=== PATIENT | female | born 1965 | race Caucasian/White ===

== ENCOUNTER 2017-04-23 15:22 | Emergency (ER) | payer OTHER ==
[~2017-04-23] VITALS: Ht 160 cm; Wt 105.7 kg
[2017-04-23] MEDS ORDERED: HYDROCHLOROTHIA25 MG PO (15:46)
[2017-04-23] MEDS ORDERED: LISINOPRIL20 MG PO (15:46)
[2017-04-23] MEDS ORDERED: FLUOXETINE HCL40 MG PO (15:46)
[2017-04-23] MEDS ORDERED: TYLENOL325 MG PO (15:47)
[2017-04-23] MEDS ORDERED: CIPRO500 MG PO (18:20)
--- NOTE | 2017-04-25 08:02 | EKG ---
[facility] [address] [facility] [place] [address] Signed Normal sinus rhythm Prolonged QT Abnormal ECG No previous ECGs available Confirmed by TONE SOW MD ([id number]) on 04/25/2017 8:02:19 AM Electronically Signed By: TONE SOW MD 04/25/17 0802 PATIENT NAME: LILIAN BARRERA Electrocardiogram DATE OF : 65 PHYSICIAN: TONE SOW MD REPORT #: [id number] REPORT IS CONFIDENTIAL AND NOT TO BE RELEASED WITHOUT AUTHORIZATION
== END 2017-04-23 22:05 | disposition short-term general hospital (02) ==
LOC: ED 15:22
DX: R55 Syncope and collapse (principal); S09.90XA Unspecified injury of head, initial encounter; N39.0 Urinary tract infection, site not specified; Z87.891 Personal history of nicotine dependence; Z98.51 Tubal ligation status; Z90.49 Acquired absence of other specified parts of digestive tract; Z88.0 Allergy status to penicillin; Z79.899 Other long term (current) drug therapy; W16.211A Fall in (into) filled bathtub causing drowning and submersion, initial encounter
CPT/HCPCS: 70450; 71010; 80053; 81001; 84484; 85025; 87088; 93005; 93010; 96361; 96374; 99285; J2920; J7030

== ENCOUNTER 2018-10-10 15:39 | Emergency (ER) | payer OTHER ==
[~2018-10-10] VITALS: Ht 160 cm; Wt 105.7 kg
--- OUTSIDE RECORDS SUMMARY | ~2018-10-10 | XMS | Encounter Summary ---
Demographics + + + | Address | [address] | | | [place] [address] | + + + | Home Phone | | + + + | Preferred Language | Unknown | + + + | Marital Status | Unknown | + + + | Zoroastrianism Affiliation | Unknown | + + + | Race | Unknown | + + + | Ethnic Group | Unknown | + + + Author + + + | Author | [facility] [employer] | + + + | Organization | [facility] [employer] | + + + | Address | Unknown | + + + | Phone | Unavailable | + + + Support + + + + + | Name | Relationship | Address | Phone | + + + + + | Corazon Gardner | ECON | [address] | | | | | [place] | | | | | [address] | | + + + + + | Juni Morel | ECON | [address] | | | | | [place] | | | | | [address] | | + + + + + Care Team Providers + +------+ + | Care Modeling Director Name | Role | Phone | + +------+ + | Keeley Polanco PA-C | PCP | Unavailable | + +------+ + Reason for Visit +--------+ + | Reason | Comments | +--------+ + | Other | Approval for procedure | +--------+ + Encounter Details +--------+ + + + + | Date | Type | Department | Care Team | Description | +--------+ + + + + | 10/07/ | Telephone | [facility] | Salena Almaraz, | Other (Approval for | | 2018 | | Gastroenterology | [place] | procedure) | | | | [address], | | | | | | [address] [facility] | | | | | | [place] [address] | | | | | | [phone] | | | +--------+ + + + + Social History + +-------+ +--------+ + | Tobacco Use | Types | Packs/Day | Years | Date | | | | | Used | | + +-------+ +--------+ + | Former Smoker | | 0 | 1 | Quit: 04/29/1998 | + +-------+ +--------+ + + +---+---+---+ | Smokeless Tobacco: | | | | | Never Used | | | | + +---+---+---+ + + +---------+ + | Alcohol Use | Drinks/We | oz/Week | Comments | | | ek | | | + + +---------+ + | No | | | | + + +---------+ + + + + | Sex Assigned at | Date Recorded | | | | + + + | Not on file | | + + + as of this encounter Plan of Treatment +--------+---------+ + + + | Date | Type | Specialty | Care Team | Description | +--------+---------+ + + + | 11/27/ | Office | Gastroenterology | Dana Workman, | | | 2018 | Visit | | [address] | | | | | | [address] [facility], | | | | | | [place] [address] | | | | | | [phone] | | | | | | | | +--------+---------+ + + + as of this encounter Visit Diagnoses Not on filein this encounter"
--- OUTSIDE RECORDS SUMMARY | ~2018-10-10 | XMS | Encounter Summary ---
Demographics + + + | Address | [address] | | | [place] [address] | + + + | Home Phone | | + + + | Preferred Language | Unknown | + + + | Marital Status | Unknown | + + + | Roman Catholic Affiliation | Unknown | + + + | Race | Unknown | + + + | Ethnic Group | Unknown | + + + Author + + + | Author | [facility] [employer] | + + + | Organization | [facility] [employer] | + + + | Address | Unknown | + + + | Phone | Unavailable | + + + Support + + + + + | Name | Relationship | Address | Phone | + + + + + | Corazon Gardner | ECON | [address] | | | | | [place] | | | | | [address] | | + + + + + | Juni Morel | ECON | [address] | | | | | [place] | | | | | [address] | | + + + + + Care Team Providers + +------+ + | Care Channel Marketing Specialist Name | Role | Phone | + +------+ + | Keeley Polanco PA-C PCP | Unavailable | + +------+ + Reason for Visit +--------+ + | Reason | Comments | +--------+ + | Other | Pt requesting to be on cancellation list | +--------+ + Encounter Details +--------+ + + + + | Date | Type | Department | Care Team | Description | +--------+ + + + + | 10/02/ | Telephone | [facility] | Salena Almaraz, | Other (Pt requesting | | 2019 | | Gastroenterology | [place] | to be on | | | | [address], | | cancellation list) | | | | [facility] [address] [place], | | | | | | [place] [address] | | | | | | [phone] | | | +--------+ + + + + Social History + +-------+ +--------+ + | Tobacco Use | Types | Packs/Day | Years | Date | | | | | Used | | + +-------+ +--------+ + | Former Smoker | | | | Quit: 04/29/1998 | + +-------+ +--------+ [...] | | 2018 | Visit | | MD [address] | | | | | | [address] [facility], | | | | | | [place] [address] | | | | | | [phone] | | | | | | | | +--------+---------+ + + + as of this encounter Visit Diagnoses Not on filein this encounter"
--- OUTSIDE RECORDS SUMMARY | ~2018-10-10 | XMS | Encounter Summary ---
Demographics + + + | Address | [address] | | | [place] [address] | + + + | Home Phone | | + + + | Preferred Language | Unknown | + + + | Marital Status | Unknown | + + + | Mormon Affiliation | Unknown | + + + | Race | Unknown | + + + | Ethnic Group | Unknown | + + + Author + + + | Author | [facility] [employer] | + + + | Organization | [facility] [employer] | + + + | Address | Unknown | + + + | Phone | Unavailable | + + + Support + + + + + | Name | Relationship | Address | Phone | + + + + + | Corazon Gardner | ECON | [address] | | | | | [place] | | | | | [address] | | + + + + + | Juni Morel | ECON | [address] | | | | | [place] | | | | | [address] | | + + + + + Care Team Providers + +------+ + | Care Printing Plate Clerk Name | Role | Phone | + +------+ + | Keeley Polanco PA-C | PCP | Unavailable | + +------+ + Reason for Visit +--------+ + | Reason | Comments | +--------+ + | Other | Sooner procedure date | +--------+ + Encounter Details +--------+ + + + + | Date | Type | Department | Care Team | Description | +--------+ + + + + | 10/03/ | Telephone | [facility] | Salena Almaraz, | Other (Soon | | 2018 | | Gastroenterology | [place] | procedure date) | | | | [address], | | | | | | [address] [place], | | | | | | [place] [address] | | | | | | [phone] | | | +--------+ + + + [...] | | | | | | [address] Floor [place], | | | | | | [place] [address] | | | | | | [phone] | | | | | | | | +--------+---------+ + + + as of this encounter Visit Diagnoses Not on filein this encounter"
--- OUTSIDE RECORDS SUMMARY | ~2018-10-10 | XMS | Encounter Summary ---
Demographics + + + | Address | [address] | | | [place] [address] | + + + | Home Phone | | + + + | Preferred Language | Unknown | + + + | Marital Status | Unknown | + + + | Islam Affiliation | Unknown | + + + | Race | Unknown | + + + | Ethnic Group | Unknown | + + + Author + + + | Author | [facility] [employer] | + + + | Organization | [facility] [employer] | + + + | Address | Unknown | + + + | Phone | Unavailable | + + + Support + + + + + | Name | Relationship | Address | Phone | + + + + + | Corazon Gardenr | ECON | [address] | | | | | [place] | | | | | [address] | | + + + + + | Juni Morel | ECON | [address] | | | | | [place] | | | | | [address] | | + + + + + Care Team Providers + +------+ + | Care Farm Truck Driver Name | Role | Phone | + +------+ + | Keeley Polanco PA-C | PCP | Unavailable | + +------+ + Reason for Visit + + + | Reason | Comments | + + + | Abdominal Pain | | + + + | Diverticulosis | | + + + | Rectal Bleeding | | + + + | Nausea | | + + + | Emesis | | + + + Consult and Treat (Routine) +--------+--------+ + + + + | Status | Reason | Specialty | Diagnoses / | Referred By | Referred To | | | | | Procedures | Contact | Contact | +--------+--------+ + + + + | Closed | | Gastroenterol | Diagnoses | Cedric, | Ji, | | | | ogy | Lower | SHAYNA Laguna | MD Dana | | | | | abdominal | [address] | | | | | pain, | [address] | [address] | | | | | unspecified | [place], | [place], | | | | | | [place] [address] | [place] [address] | | | | | Diverticulos | Phone: | Phone: | | | | | is of large | [phone] | [phone] | | | | | intestine | Fax: | Fax: | | | | | without | [phone] | [phone] | | | | | perforation | | | | | | | or abscess | | | | | | | without | | | | | | | bleeding | | | | | | | Diarrhea, | | | | | | | unspecified | | | +--------+--------+ + + + + Encounter Details +--------+---------+ + + + | Date | Type | Department | Care Team | Description | +--------+---------+ + + + | 09/27/ | Office | [facility] | Dana Workman, | Diarrhea, | | 2019 | Visit | Gastroenterology | MD [address] | unspecified type | | | | [address], | [address] [place], | (Primary Dx); Blood | | | | [address] [place], | [place] [address] | in stool; Nausea; | | | | [place] [address] | [phone] | Weight loss; Loss of | | | | [phone] | | appetite | +--------+---------+ + + + Social History + +-------+ [...] + + + as of this encounter Last Filed Vital Signs + + + + | Vital Sign | Reading | Time Taken | + + + + | Blood Pressure | 120/87 | 09/27/2018 10:14 AM PDT | + + + + | Pulse | 108 | 09/27/2018 10:14 AM PDT | + + + + | Temperature | - | - | + + + + | Respiratory Rate | - | - | + + + + | Oxygen Saturation | - | - | + + + + | Inhaled Oxygen | - | - | | Concentration | | | + + + + | Weight | 102.8 kg (226 lb 9.6 | 09/27/2018 10:14 AM PDT | | | oz) | | + + + + | Height | 158.8 cm (5' 2.5") | 09/27/2018 10:14 AM PDT | + + + + | Body Mass Index | 40.79 | 09/27/2018 10:14 AM PDT | + + + + in this encounter Progress Notes Dana Workman MD - 09/27/2018 10:40 AM PDTFormatting of this note may be different from the original. GI CONSULT NOTE REFERRING PHYSICIAN: Luz Elena Steele PA REASON FOR CONSULT: Chief Complaint Patient presents with Abdominal Pain Diverticulosis Rectal Bleeding Nausea Emesis HPI 52 y.o. female presented for evaluation of abdominal pain, blood in stool, diarrhea, nausea and vomiting. Patient was in normal state of health till 4 months back. She started having abdominal pain located in the lower abdomen. CT scan done at that time showed diverticulosis without diverticulitis. She was empirically treated with antibiotics at the outside facilit y. Patient mentioned that she has been having diarrhea for past 4 months. She has 3-4 stools a day. Stools are bloody. She has been seeing blood mixed with stool. Since the onset of di arrhea she has lost 20 pounds unintentionally. Diarrhea is associated with nausea and occasi onal vomiting. It is also associated with diffuse abdominal cramping and pain. Additionally patient has lost appetite. Aside from antibiotic use in May she has not had any more an tibiotics. She denies any history of sick contacts or travel history. The symptoms have no s pecific association with any specific type of food. Every time she eats she has a bowel move ment right away. ROS Review of Systems Constitutional: Positive for appetite change. Negative for activity change, chills, diaphor esis, fatigue, fever and unexpected weight change. HENT: Negative for ear pain, mouth sores, nosebleeds, sore throat, trouble swallowing and v oice change. Eyes: Negative for pain, redness and visual disturbance. Respiratory: Positive for shortness of breath. Negative for cough, choking, chest tightness and wheezing. Cardiovascular: Negative for chest pain, palpitations and leg swelling. Gastrointestinal: Positive for abdominal pain, blood in stool, diarrhea, nausea and vomitin g. Negative for abdominal distention, anal bleeding, constipation and rectal pain. Endocrine: Negative for cold intolerance, heat intolerance and polydipsia. Genitourinary: Positive for hematuria. Negative for difficulty urinating, dysuria, frequenc y, urgency and vaginal bleeding. Musculoskeletal: Positive for back pain. Negative for arthralgias, gait problem, joint swel ling, myalgias, neck pain and neck stiffness. Skin: Negative for color change, rash and wound. Allergic/Immunologic: Negative for environmental allergies, food allergies and immunocompro mised state. Neurological: Positive for headaches. Negative for dizziness, tremors, seizures, syncope, w eakness and light-headedness. Hematological: Negative for adenopathy. Bruises/bleeds easily. Psychiatric/Behavioral: Negative for agitation, behavioral problems, confusion, dysphoric m ood, hallucinations and suicidal ideas. The patient is not nervous/anxious. Past Medical History Diagnosis Date Asthma Bipolar disorder (HCC) Bipolar disorder (HCC) Hydrocephalus with 911 OPERATOR shunt (2002) Migraine Past Surgical History Procedure Laterality Date CARPAL TUNNEL RELEASE Bilateral SECTION CHOLECYSTECTOMY CSF SHUNT 2002 HERNIA REPAIR TUBAL LIGATION SHx History Smoking Status Former Smoker Quit date: 04/29/1998 Smokeless Tobacco Never Used History Alcohol Use No History Drug Use No Comment: Pt denies, pos drug screen FHx Family History Problem Relation Age of Onset Cancer Mother Diabetes type II Mother Diabetes type II Father Allergies: Allergies Allergen Reactions Ketorolac Shortness of Breath Nsaids Shortness of Breath Penicillins Hives A-Cillin (penicillin) Type:Drug; Dt:04/19/2012; Tramadol Shortness of Breath Cephalexin Other (See Comments) Cephalexin Monohydrate(cephalexin) Note:Pt states she's allergic. Unknown reaction. ; Typ e:Drug; Unknown; Morphine Other (See Comments) Bad headache PHYSICAL EXAM: Vitals: 09/27/18 1014 BP: 120/87 Pulse: 108 Weight: 102.8 kg (226 lb 9.6 oz) Height: 1.588 m (5' 2.5") Physical Examination: General: NAD , WD/WN Eyes: EOMI, No lid lag or proptosis ENT: NC/AT , Moist mucous membranes. Neck : No thyromegaly , Supple , No LN palpable, CVS: S1+S2,No MRG, No JVD or pedal edema. Resp: CTA B/L, W/R/R -None Abd: Soft ,NT , ND , No organomegaly , BS present Neuro : AOX3, Skin: No conjuctival and palmar palor, Icterus-negative. MEDICATIONS Current Outpatient Prescriptions Medication Sig Dispense Refill doxycycline (VIBRA-TABS) 100 MG tablet Take 1 tablet by mouth 2 (two) times daily. 20 t ablet 0 fluticasone (FLOVENT HFA) 110 MCG/ACT inhaler Inhale 1 puff into the lungs 2 (two) time s daily. Rinse mouth after use lisinopril (ZESTRIL) 20 MG tablet Take 20 mg by mouth daily. SUMAtriptan (IMITREX) 50 MG tablet Take 50 mg by mouth as needed. vitamin D2, ergocalciferol, 25380 units capsule Take 1 capsule by mouth. divalproex (DEPAKOTE) 250 MG EC tablet Take 250 mg by mouth. FLUoxetine (PROZAC) 40 MG capsule Take 40 mg by mouth daily. Iron 25 MG TABS Take by mouth daily. metroNIDAZOLE (FLAGYL) 500 MG tablet Take 1 tablet by mouth 2 (two) times daily. (Patie nt not taking: Reported on 09/27/2018) 20 tablet 0 oxyCODONE-acetaminophen (PERCOCET) 5-325 MG per tablet Take 1-2 tablets by mouth every 4 (four) hours as needed for Pain. (Patient not taking: Reported on 09/27/2018) 20 tablet 0 traZODone (DESYREL) 100 MG tablet Take 100 mg by mouth. No current facility-administered medications for this visit. LABS AND DATA : Lab Results Component Value Date WBC 4.88 09/16/2018 HGB 14.8 09/16/2018 HCT 44.8 09/16/2018 PLT 144 (L) 09/16/2018 ALT 22 09/16/2018 AST 26 09/16/2018 NA 142 09/16/2018 K 4.7 09/16/2018 CL 108 09/16/2018 BUN 10 09/16/2018 CO2 25 09/16/2018 INR 1.0 04/28/2018 CT scan done on 05 May 2018 showed hepatic steatosis, surgically absent gallbladder, bi lateral nonobstructing nephrolithiasis, diverticulosis without diverticulitis, duodenal dive rticulum, para-toenail shunt with inflammatory changes in the anterior abdominal wall. ASSESSMENT/PLAN: ICD-10-CM 1. Diarrhea, unspecified type R19.7 C DIFF With Reflex to CLPCR Stool culture with shiga toxin Ova and parasite examination Case Request Operating Room: COLONOSCOPY W/ EGD polyethylene glycol (GOLYTELY,NULYTELY) 236 g suspension 2. Blood in stool K92.1 Case Request Operating Room: COLONOSCOPY W/ EGD polyethylene glycol (GOLYTELY,NULYTELY) 236 g suspension 3. Nausea R11.0 Case Request Operating Room: COLONOSCOPY W/ EGD polyethylene glycol (GOLYTELY,NULYTELY) 236 g suspension 4. Weight loss R63.4 5. Loss of appetite R63.0 - Pt with chronic diarrhea, with alarm signs of blood in stool and weight loss. Additionall y patient has nausea and vomiting. -D/D IBS-D , inflammatory bowel disease , microscopic colitis, medication induced, infectio us diarrhea , bile acid diarrhea ,celiac disease, small intestinal bacterial overgrowth etc . -Her symptoms are concerning specially presence of unintentional weight loss with blood in stool. It raise high index of suspicion for an inflammatory process going on this could be r elated to new onset inflammatory bowel disease or an ongoing infectious colitis. -This will need further endoscopic workup. -Will check stool studies to rule out infectious causes . -Will schedule for colonoscopy and upper endoscopy with biopsies for further workup of diar clive, blood in stool and weight loss. This will be scheduled with monitored anesthesia care as she has a BMI of more than 35, opioid use and previous history of having a peritoneal bhavin nt which is anticipated to make colonoscopy technically challenging.The procedure was discus sed in detail to include indications, limitations, alternatives available and potential comp lications to include but not limited to bleeding, infection, tear or perforation, missed les ions and potential reaction to medications. Patient and/or responsible adult voiced full und erstanding of these, opportunity for questions provided and informed consent was obtained. in this encounter Plan of Treatment +--------+---------+ + + + | Date | Type | Specialty | Care Team | Description | +--------+---------+ + + + | 11/27/ | Office | Gastroenterology | Dana Workman, | | | 2018 | Visit | | MD [address] | | | | | | [facility] [facility], | | | | | | [place] [address] | | | | | | [phone] | | | | | | | | +--------+---------+ + + + + +--------+ + + | Name | Priori | Associated Diagnoses | Order Schedule | | | ty | | | + +--------+ + + | C DIFF With Reflex to CLPCR | Routin | Diarrhea, | Expected: | | | e | unspecified type | 09/27/2018, Expires: | | | | | 09/28/2019 | + +--------+ + + | Stool culture with shiga toxin | Routin | Diarrhea, | Expected: | | | e | unspecified type | 09/27/2018, Expires: | | | | | 09/28/2019 | + +--------+ + + | Ova and parasite examination | Routin | Diarrhea, | Expected: | | | e | unspecified type | 09/27/2018, Expires: | | | | | 09/28/2019 | + +--------+ + + | Case Request Operating Room: | Routin | Diarrhea, | Expected: | | COLONOSCOPY W/ EGD | e | unspecified type | 10/22/2018, Expires: | | | | Blood in stool | 09/28/2019 | | | | Nausea | | + +--------+ + + as of this encounter Visit Diagnoses + + | Diagnosis | + + | Diarrhea, unspecified type - Primary | + + | Blood in stool | + + | Nausea | + + | Nausea alone | + + | Weight loss | + + | Loss of weight | + + | Loss of appetite | + + | Anorexia | + +
--- OUTSIDE RECORDS SUMMARY | ~2018-10-10 | XMS | Encounter Summary ---
Demographics + + + | Address | [address] | | | [place] [address] | + + + | Home Phone | | + + + | Preferred Language | Unknown | + + + | Marital Status | Unknown | + + + | Faith Affiliation | Unknown | + + + | Race | Unknown | + + + | Ethnic Group | Unknown | + + + Author + + + | Author | [facility] | + + + | Organization | [facility] | + + + | Address | Unknown | + + + | Phone | Unavailable | + + + Support + + + + + | Name | Relationship | Address | Phone | + + + + + | Corazon Gardner | ECON | [address] | | | | | [place] | | | | | [address] | | + + + + + | Juni Morel | ECON | [address] | | | | | [place] | | | | | [address] | | + + + + + Care Team Providers + +------+ + | Care Nurse Ldr Name | Role | Phone | + +------+ + | Keeley Polanco PA-C | PCP | Unavailable | + +------+ + Reason for Visit +--------+ + | Reason | Comments | +--------+ + | Other | REFERRAL FROM [facility] | +--------+ + Encounter Details +--------+ + + + + | Date | Type | Department | Care Team | Description | +--------+ + + + + | 09/05/ | Documentati | [facility] | Tiago Almonte | Other (REFERRAL FROM | | 2019 | on Only | Gastroenterology | MD Jaz[address] | [facility]) | | | | [address], | [address] | | | | | [facility] [address], | [place] [address] | | | | | [place] [address] | [phone] | | | | | [phone] | | | +--------+ + + + [...] | | | | | | [facility] [facility]– [place], | | | | | | [place] [address] | | | | | | [phone] | | | | | | | | +--------+---------+ + + + as of this encounter Visit Diagnoses Not on filein this encounter"
--- OUTSIDE RECORDS SUMMARY | ~2018-10-10 | XMS | Clinical Summary ---
Demographics + + + | Address | [address] | | | [place] [address] | + + + | Home Phone | | + + + | Preferred Language | Unknown | + + + | Marital Status | Unknown | + + + | Congregation Affiliation | Unknown | + + + | Race | Unknown | + + + | Ethnic Group | Unknown | + + + Author + + + | Author | [facility] [employer] | + + + | Organization | [facility] [facility] | + + + | Address | Unknown | + + + | Phone | Unavailable | + + + Support + + + + + | Name | Relationship | Address | Phone | + + + + + | Corazon Gardner | ECON | [address] | | | | | [place] | | | | | [address] | | + + + + + | Juni Morel | ECON | [address] | | | | | [place] | | | | | [address] | | + + + + + Care Team Providers + +------+ + | Care Mandolin Repairer Name | Role | Phone | + +------+ + | Keeley Polanco PA-C | PP | Unavailable | + +------+ + Allergies + + + + + + | Active Allergy | Reactions | Severity | Noted | Comments | | | | | Date | | + + + + + + | Cephalexin | Other (See Comments) | Medium | 07/13/19 | Cephalexin | | | | | 17 | Monohydrate(cephalex | | | | | | in) Note:Pt states | | | | | | she's allergic. | | | | | | Unknown reaction. ; | | | | | | Type:Drug; Unknown; | + + + + + + | Ketorolac | Shortness of Breath | High | 09/17/19 | | | | | | 19 | | + + + + + + | Morphine | Other (See Comments) | Medium | 04/15/20 | Bad headache | | | | | 12 | | + + + + + + | Nsaids | Shortness of Breath | High | 09/17/19 | | | | | | 19 | | + + + + + + | Penicillins | Hives | High | 04/15/20 | A-Cillin | | | | | 12 | (penicillin) | | | | | | Type:Drug; | | | | | | Dt:04/19/2012; | + + + + + + | Tramadol | Shortness of Breath | High | 09/17/19 | | | | | | 19 | | + + + + + + Current Medications + + + +---------+------+------+-------+ | Prescription | Sig. | Disp. | Refills | Star | End | Statu | | | | | | t | Date | s | | | | | | Date | | | + + + +---------+------+------+-------+ | SUMAtriptan | Take 50 mg by mouth | | | | | Activ | | (IMITREX) 50 MG | as needed. | | | | | e | | tablet | | | | | | | + + + +---------+------+------+-------+ | fluticasone | Inhale 1 puff into | | | | | Activ | | (FLOVENT HFA) 110 | the lungs 2 (two) | | | | | e | | MCG/ACT inhaler | times daily. Rinse | | | | | | | | mouth after use | | | | | | + + + +---------+------+------+-------+ | lisinopril | Take 20 mg by mouth | | | | | Activ | | (ZESTRIL) 20 MG | daily. | | | | | e | | tablet | | | | | | | + + + +---------+------+------+-------+ | divalproex | Take 250 mg by | | | | | Activ | | (DEPAKOTE) 250 MG EC | mouth. | | | | | e | | tablet | | | | | | | + + + +---------+------+------+-------+ | traZODone | Take 100 mg by | | | | | Activ | | (DESYREL) 100 MG | mouth. | | | | | e | | tablet | | | | | | | + + + +---------+------+------+-------+ | vitamin D2, | Take 1 capsule by | | | 06/08 | | Activ | | ergocalciferol, | mouth. | | | 03/28 | | e | | 90332 units capsule | | | | 17 | | | + + + +---------+------+------+-------+ | metoclopramide | Take 10 mg by mouth | | | | | Activ | | (REGLAN) 10 MG | 4 (four) times daily | | | | | e | | tablet | before meals and | | | | | | | | nightly. | | | | | | + + + +---------+------+------+-------+ | Iron 25 MG TABS | Take by mouth | | | | 03/2 | Disco | | | daily. | | | | 9/20 | ntinu | | | | | | | 19 | ed | + + + +---------+------+------+-------+ | FLUoxetine | Take 40 mg by mouth | | | | 03/2 | Disco | | (PROZAC) 40 MG | daily. | | | | 9/20 | ntinu | | capsule | | | | | 19 | ed | + + + +---------+------+------+-------+ | doxycycline | Take 1 tablet by | 20 | 0 | 10/2 | 03/2 | Disco | | (VIBRA-TABS) 100 MG | mouth 2 (two) times | tablet | | 1/20 | 9/20 | ntinu | | tablet | daily. | | | 18 | 19 | ed | + + + +---------+------+------+-------+ | metroNIDAZOLE | Take 1 tablet by | 20 | 0 | 10/2 | 03/2 | Disco | | (FLAGYL) 500 MG | mouth 2 (two) times | tablet | | 1/20 | 9/20 | ntinu | | tablet | daily. | | | 18 | 19 | ed | + + + +---------+------+------+-------+ | | Take 1-2 tablets by | 20 | 0 | 10/2 | 03/2 | Disco | | oxyCODONE-acetaminop | mouth every 4 (four) | tablet | | 1/20 | 9/20 | ntinu | | hen (PERCOCET) 5-325 | hours as needed for | | | 18 | 19 | ed | | MG per tablet | Pain. | | | | | | + + + +---------+------+------+-------+ | polyethylene | Take 4,000 mLs by | 4000 mL | 0 | 03/2 | 03/2 | Expir | | glycol | mouth once for 1 | | | 2/20 | 2/20 | ed | | (DINH HARTMAN) | dose. Use as | | | 19 | 19 | | | 236 g | instructed in | | | | | | | suspensionIndication | clinic. | | | | | | | s: Diarrhea, | | | | | | | | unspecified type, | | | | | | | | Blood in stool, | | | | | | | | Nausea | | | | | | | + + + +---------+------+------+-------+ Active Problems + + + | Problem | Noted Date | + + + | Diarrhea | 09/27/2018 | + + + + + | Overview: Added automatically from request for surgery [id number] | + + + + + | Blood in stool | 09/27/2018 | + + + + + | Overview: Added automatically from request for surgery [id number] | + + +--------+ + | Nausea | 09/27/2018 | +--------+ + + + | Overview: Added automatically from request for surgery [id number] | + + + + + | Essential hypertension | 04/29/2017 | + + + | Methamphetamine abuse (HCC) | 02/04/2014 | + + + | Rhabdomyolysis | 02/04/2014 | + + + | Leucocytosis | 02/04/2014 | + + + | Electrolyte disorder | 02/04/2014 | + + + | Elevated troponin | 02/04/2014 | + + + | Chronic headache disorder | 04/16/2012 | + + + | REAL ESTATE LEASING MANAGER (ventriculoperitoneal) shunt status | 04/16/2012 | + + + | Narcotic dependence (HCC) | 04/16/2012 | + + + Resolved Problems + + + + | Problem | Noted | Resolved | | | Date | Date | + + + + | Hypokalemia | 04/30/20 | | | | 17 | 7 | + + + + | Dehydration | 04/29/20 | | | | 17 | 7 | + + + + | THERESA (acute kidney injury) | 02/05/20 | | | | 14 | 7 | + + + + | Metabolic acidosis | 02/05/20 | | | | 14 | 7 | + + + + Encounters +--------+ + + + + | Date | Type | Specialty | Care Team | Description | +--------+ + + + + | 10/08/ | Hospital | | Dana Wokrman, | Diarrhea; Blood in | | 2019 | Encounter | | MD | stool; Nausea; | | | | | | Diarrhea, | | | | | | unspecified type; | | | | | | Blood in stool; | | | | | | Nausea | +--------+ + + + + | 10/08/ | Procedure | | | | | 2018 | Pass | | | | +--------+ + + + + | 10/08/ | Surgery | | Dana Workman, | COLONOSCOPY W/ EGD | | 2018 | | | MD | | +--------+ + + + + | 10/07/ | Anesthesia | | Alexis Beck | | 2018 | Event | | EVELIO Piedra | | +--------+ + + + + | 10/07/ | Telephone | | Salena Almaraz, | Other (Approval for | | 2018 | | | [place] | procedure) | +--------+ + + + + | 10/04/ | Hospital | | Dana Workman, | | | 2018 | Encounter | | MD | | +--------+ + + + + | 10/03/ | Orders Only | | Salena Almaraz, | Diarrhea, | | 2018 | | | [place] | unspecified type | | | | | | (Primary Dx); Blood | | | | | | in stool; Nausea; | | | | | | Weight loss; Loss of | | | | | | appetite | +--------+ + + + + | 10/03/ | Telephone | | Salena Almaraz, | Other (Sooner | | 2018 | | | [place] | procedure date) | +--------+ + + + + | 10/02/ | Telephone | | Salena Almaraz, | Other (Pt requesting | | 2018 | | | [place] | to be on | | | | | | cancellation list) | +--------+ + + + + | 09/27/ | Office | | Dana Workman, | Diarrhea, | | 2018 | Visit | | | unspecified type | | | | | | (Primary Dx); Blood | | | | | | in stool; Nausea; | | | | | | Weight loss; Loss of | | | | | | appetite | +--------+ + + + + | 09/16/ | Emergency | | Joe Sales DO | Bilateral flank pain | | 2018 | | | | (Primary Dx); | | | | | | Nephrolithiasis | +--------+ + + + + | 09/05/ | Documentati | | Tiago Almonte | Other (REFERRAL FROM | | 2018 | on Only | | MD Jazmin | KOFI MCPHERSON) | +--------+ + + + + from Last 3 Months Immunizations + + + + | Name | Dates Previously Given | Next Due | + + + + | INFLUENZA PF, | 07/13/2016 | | | QUADRIVALENT | | | | (PED/ADOL/ADULT) | | | + + + + | INFLUENZA W/PRESERV | 04/09/2018, 04/16/2017 | | | QUADRIVALENT | | | | (MULTIDOSE) | | | + + + + | Influenza, Trivalent | 03/22/2012, 05/04/2010, 04/14/2009, | | | W/Preservative | 09/03/2007, 07/21/2005, 07/12/2004 | | + + + + | OPV | 03/14/1977, 09/08/1975, 08/11/1975, | | | | 04/09/1973 | | + + + + | Pneumococcal | 02/05/2014 | | | Polysaccharide | | | | 23-valent | | | + + + + | Td W/o Preservative | 03/14/1977, 09/08/1975, 08/11/1975 | | | (Adol/adult) | | | + + + + | Tdap | 03/22/2012 | | + + + + Family History + + +------+ + | Medical History | Relation | Name | Comments | + + +------+ + | Diabetes type II | Father | | | + + +------+ + | Cancer | Mother | | | + + +------+ + | Diabetes type II | Mother | | | + + +------+ + | Malig hypertherm | Neg Hx | | | + + +------+ + + +------+ + + | Relation | Name | Status | Comments | + +------+ + + | Father | | | | + +------+ + + | Mother | | | | | | | (Age | | | | | 72) | | + +------+ + + Social History + +-------+ +--------+ [...] on file | | + + + Last Filed Vital Signs + + + + | Vital Sign | Reading | Time Taken | + + + + | Blood Pressure | 130/72 | 10/08/2018 12:20 PM PDT | + + + + | Pulse | 78 | 10/08/2018 12:20 PM PDT | + + + + | Temperature | 35.9 C (96.7 F) | 10/08/2018 12:20 PM PDT | + + + + | Respiratory Rate | 16 | 10/08/2018 12:20 PM PDT | + + + + | Oxygen Saturation | 98% | 10/08/2018 12:20 PM PDT | + + + + | Inhaled Oxygen | - | - | | Concentration | | | + + + + | Weight | 103.9 kg (229 lb 0.9 | 10/08/2018 10:29 AM PDT | | | oz) | | + + + + | Height | 158.8 cm (5' 2.5") | 10/08/2018 10:29 AM PDT | + + + + | Body Mass Index | 41.23 | 10/08/2018 10:29 AM PDT | + + + + Plan of Treatment +--------+---------+ + + + | Date | Type | Specialty | Care Team | Description | +--------+---------+ + + + | 11/27/ | Office | | Dana Workman, | | | 2018 | Visit | | MD [address] | | | | | | [address] Floor [place], | | | | | | [place] [address] | | | | | | [phone] | | | | | | | | +--------+---------+ + + + + + + + + | Health Maintenance | Due Date | Last Done | Comments | + + + + + | Cervical Cancer | | | | | Screening (Pap) | 6 | | | + + + + + | Breast Cancer | | | | | Screening | 6 | | | | (Mammogram) | | | | + + + + + | Vaccine: Zoster (1 | | | | | of 2) | 6 | | | + + + + + | Vaccine: | | 03/22/2012, 03/14/1977, | | | Dtap/Tdap/Td (5 - | 2 | 09/08/1975, Additional history | | | Td) | | exists | | + + + + + | Colon Cancer | | 10/08/2018 | | | Screening | 9 | | | | (Colonoscopy) | | | | + + + + + | Vaccine: Influenza | Completed | 04/09/2018, 04/16/2017, | | | | | 07/13/2016, Additional history | | | | | exists | | + + + + + Procedures + +--------+ + + + | Procedure Name | Priori | Date/Time | Associated Diagnosis | Comments | | | ty | | | | + +--------+ + + + | PATHOLOGY HISTOLOGY | Routin | 10/08/2018 | Diarrhea, | Results for this | | - TISSUE | e | 2:00 PM | unspecified type | procedure are in the | | | | PDT | Blood in stool | results section. | | | | | Nausea | | + +--------+ + + + | COLONOSCOPY | Routin | 10/08/2018 | | Results for this | | | e | 11:17 AM | | procedure are in the | | | | PDT | | results section. | + +--------+ + + + | EGD | Routin | 10/08/2018 | | Results for this | | | e | 11:04 AM | | procedure are in the | | | | PDT | | results section. | + +--------+ + + + | COLONOSCOPY W/ EGD | | 10/08/2018 | Diarrhea, | | | | | 10:52 AM | unspecified type | | | | | PDT | | | + +--------+ + + + +---+--------+ | | | | | Specia | | | l | | | Needs | | | 12:30 | | | | | | With | | | anesth | | | esiaAl | | | lergie | | | s: | | | PCN, | | | NSAIDS | | | , | | | ketoro | | | lac, | | | tramad | | | ol, | | | morphi | | | ne, | | | cephal | | | exinVP | | | shunt | | | in | | | place | +---+--------+ + +--------+ +---+ + | EKG STANDARD 12 LEAD | Timed | 10/04/2018 | | Results for this | | | | 12:56 PM | | procedure are in the | | | | PDT | | results section. | + +--------+ +---+ + | CBC W/AUTO DIFF | STAT | 09/16/2018 | | Results for this | | (REFLEX TO MANUAL) | | 5:56 PM | | procedure are in the | | | | PDT | | results section. | + +--------+ +---+ + | URINALYSIS (REFLEX | STAT | 09/16/2018 | | Results for this | | TO | | 5:39 PM | | procedure are in the | | MICROSCOPIC/REFLEX | | PDT | | results section. | | TO CULTURE) | | | | | + +--------+ +---+ + | LIPASE | STAT | 09/16/2018 | | Results for this | | | | 5:39 PM | | procedure are in the | | | | PDT | | results section. | + +--------+ +---+ + | C-REACTIVE PROTEIN | STAT | 09/16/2018 | | Results for this | | | | 5:39 PM | | procedure are in the | | | | PDT | | results section. | + +--------+ +---+ + | COMPREHENSIVE | STAT | 09/16/2018 | | Results for this | | METABOLIC PANEL | | 5:39 PM | | procedure are in the | | | | PDT | | results section. | + +--------+ +---+ + | CT URINARY TRACT | DAVID | 09/16/2018 | | Results for this | | ABDOMEN PELVIS WO | | 5:27 PM | | procedure are in the | | CONTRAST | | PDT | | results section. | + +--------+ +---+ + | ED INFORMATION | Routin | 09/16/2018 | | Results for this | | EXCHANGE | e | 4:01 PM | | procedure are in the | | | | PDT | | results section. | + +--------+ +---+ + from Last 3 Months Results Pathology histology - tissue (10/08/2018 2:00 PM) + + | Specimen | + + | Tissue | + + + + + | Narrative | Performed At | + + + | SPECIMEN(S): A DUODENAL BIOPSY SPECIMEN(S): B GASTRIC BIOPSY | [facility] | | SPECIMEN(S): C RANDOM RIGHT COLON BIOPSY SPECIMEN(S): D RANDOM LEFT | PATHOLOGY | | COLON BIOPSY SPECIMEN(S): E RECTAL POLYP I SPECIMEN(S): F RECTAL | | | POLYP II SPECIMEN SOURCE: A. DUODENAL BIOPSY B. GASTRIC BIOPSY C. | | | RANDOM RIGHT COLON BIOPSY D. RANDOM LEFT COLON BIOPSY E. RECTAL | | | POLYP I F. RECTAL POLYP II CLINICAL HISTORY: No preop or clinical | | | information is given on requisition. MICROSCOPIC DESCRIPTION: | | | Histologic sections of all submitted blocks are examined by light | | | microscopy. These findings, together with the gross examination, | | | support the pathologic diagnosis. FINAL PATHOLOGIC DIAGNOSIS: | | | A. 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 - Negative for active inflammation, ulceration | | | or significant villous blunting. B. Stomach, biopsies: | | | - Mild chronic gastritis with vascular congestion. - Negative | | | for active inflammation. - No Helicobacter pylori bacteria are | | | detected by HE stain. C. Random right colon, biopsies: | | | - Unremarkable colonic mucosa. - Negative for active colitis, | | | granulomas or dysplasia. D. Random left colon, biopsies: | | | - Unremarkable colonic mucosa. - Negative for active colitis, | | | granulomas or dysplasia. E. Rectal polyp #1, biopsy: | | | - Hyperplastic polyp. F. Rectal polyp #2, polypectomy: | | | - Tubular adenoma. - Negative for high-grade glandular | | | dysplasia or malignancy. AMB:emb:C2NR GROSS DESCRIPTION: Six | | | specimens are received in six containers, labeled "MS." A. The | | | specimen, labeled "MS, duodenal biopsy," is received in formalin and | | | consists of five pink-mireles soft tissue fragment(s) that measure from | | | 0.2-0.3 cm in greatest dimension. The specimen is entirely submitted | | | in cassette (A1). B. The specimen, labeled "MS, gastric | | | biopsy," is received in formalin and consists of three pink-mireles soft | | | tissue fragment(s) that measure from 0.2-0.4 cm in greatest dimension. | | | The specimen is entirely submitted in cassette (B1). C. The | | | specimen, labeled "MS, random right colon biopsy," is received in | | | formalin and consists of three pink-mireles soft tissue fragment(s) that | | | measure from 0.2-0.4 cm in greatest dimension. The specimen is | | | entirely submitted in cassette (C1). D. The specimen, labeled | | | "MS, random left colon biopsy," is received in formalin and consists | | | of two pink-mireles soft tissue fragment(s) that measure from 0.2-0.5 cm | | | in greatest dimension. The specimen is entirely submitted in cassette | | | (D1). E. The specimen, labeled "MS, rectal polyp one," is | | | received in formalin and consists of one [id number] soft tissue | | | fragment that measures up to 0.4 cm in greatest dimension. The | | | specimen is entirely submitted in cassette (E1). F. The | | | specimen, labeled "MS, rectal polyp two," is received in formalin and | | | consists of one pink-mireles soft tissue fragment that measures 1.4 cm in | | | greatest dimension. The specimen is serial sectioned and entirely | | | submitted in cassette (F1). JS (under the direct supervision of a | | | pathologist) The Gross Description was prepared using a voice | | | recognition system. The report was reviewed for accuracy; however, | | | sound-alike word errors, addition and/or deletions may occur. If | | | there is any question about this report, please contact Client | | | Services. PERFORMING LABORATORY: The technical component was | | | performed by [facility], [address] [place] [address] | | | (Ms Sql Server Developer: Earline Rhodes MD; CLIA# [id number]). Professional | | | interpretation was performed by [facility] | | | [address] [address] (Medical | | | Director: Joe Mustafa M.D.; CLIA#: [id number]). | | | Diagnostician: Earline Rhodes MD Pathologist Electronically Signed | | | 10/09/2018 | | + + + + +---------+ + + | Performing | Address | City/State/Zipcode | Phone Number | | Organization | | | | + +---------+ + + | [facility] | | | | + +---------+ + + Colonoscopy procedures (10/08/2018 11:17 AM) + + + | Narrative | Performed At | + + + | [facility] | [facility] | | | [facility] | | Patient Name: Qiana Carr Ann Procedure Date: | | | 10/08/2018 11:17 AM MRN: | | | [id number] Account | | | Number: [id number] Date of : | | | 1965 Note Status: Finalized Attending | | | MD: Dana Workman , Instrument Name: Elmaaner Colonoscope | | | | | | | | | Procedure Type: Colonoscopy | | | Indications: Hematochezia, Chronic diarrhea, Weight | | | loss Medicines: Monitored Anesthesia Care | | | Complications: No immediate complications. | | | | | | Procedure: Pre-Anesthesia Assessment: - | | | Prior to the procedure, a History and Physical was performed, and | | | patient medications and allergies were reviewed. The | | | patient's tolerance of previous anesthesia was also | | | reviewed. The risks and benefits of the procedure and the | | | sedation options and risks were discussed with the patient. | | | All questions were answered, and informed consent was obtained. | | | Prior Anticoagulants: The patient has taken no previous | | | anticoagulant or antiplatelet agents. ASA Grade Assessment: | | | III - A patient with severe systemic disease. After | | | reviewing the risks and benefits, the patient was deemed in | | | satisfactory condition to undergo the procedure. After I | | | obtained informed consent, the scope was passed under direct | | | vision. Throughout the procedure, the patient's blood | | | pressure, pulse, and oxygen saturations were monitored | | | continuously. The Colonoscope was introduced through the | | | anus and advanced to the cecum, identified by appendiceal | | | orifice and ileocecal valve. The colonoscopy was performed | | | without difficulty. The patient tolerated the procedure well. The | | | quality of the bowel preparation was excellent. The ileocecal | | | valve, appendiceal orifice, and rectum were photographed. | | | | | | | | | | | | Estimated Blood Loss: Estimated blood loss: none. | | | Scope Withdrawal Time 0 hours 32 minutes 20 seconds Findings: | | | The perianal and digital rectal examinations were normal. | | | A 15 mm polyp was found in the rectum 1-2 above dentate line. | | | The polyp was pedunculated. The polyp was removed with a | | | hot snare. Resection and retrieval were complete. It was | | | very vascular and starts bleeding after polypectomy , four | | | hemostatic clips were successfully placed. Bleeding had | | | stopped at the end of the procedure. Area was successfully injected | | | with 4 mL of a 1:10,000 solution of epinephrine for | | | hemostasis. A 4 mm polyp was found in the rectum. The polyp | | | was sessile. The polyp was removed with a cold snare. | | | Resection and retrieval were complete. The recto-sigmoid | | | colon, sigmoid colon, descending colon, splenic flexure, | | | transverse colon, hepatic flexure, ascending colon, cecum, | | | appendiceal orifice and ileocecal valve appeared normal. Biopsies for | | | histology were taken with a cold forceps from the right | | | colon and left colon for evaluation of microscopic colitis. | | | | | | | | | | | | Impression: - One 15 mm polyp in the | | | rectum, removed with a hot snare. Resected and retrieved. | | | Clips were placed. Injected. - One 4 mm polyp in the rectum, | | | removed with a cold snare. Resected and retrieved. | | | - The recto-sigmoid colon, sigmoid colon, descending colon, | | | splenic flexure, transverse colon, hepatic flexure, | | | ascending colon, cecum, appendiceal orifice and ileocecal | | | valve are normal. Biopsied. | | | | | | | | | Recommendation: - Patient has a contact | | | number available for emergencies. The signs and symptoms of | | | potential delayed complications were discussed with the | | | patient. Return to normal activities tomorrow. Written discharge | | | instructions were provided to the patient. - Resume | | | previous diet. - Continue present medications. - | | | Repeat colonoscopy in 3 years for surveillance. - Await | | | pathology results. | | | | | | | | | Dana Workman, 10/08/2018 | | | 12:06:35 PM This report has been signed electronically. Note | | | Initiated On: 10/08/2018 11:17 AM Number of Addenda: 0 | | | [facility] | | + + + + +---------+ + + | Performing | Address | City/State/Zipcode | Phone Number | | Organization | | | | + +---------+ + + | [facility] | | | | + +---------+ + + EGD (10/08/2018 11:04 AM) + + + | Narrative | Performed At | + + + | [facility] | [facility] | | | [facility] | | Patient Name: Qiana Carr Procedure Date: | | | 10/08/2018 11:04 AM MRN: | | | [id number] Account | | | Number: [id number] Date of : | | | 1965 Note Status: Finalized Attending | | | MD: Dana Workman , Instrument Name: [id number] Gastroscope | | | | | | Procedure Type: Upper GI endoscopy | | | Indications: Anorexia, Diarrhea, Nausea, Weight | | | loss Medicines: Monitored Anesthesia Care | | | Complications: No immediate complications. | | | | | | Procedure: Pre-Anesthesia Assessment: - | | | Prior to the procedure, a History and Physical was performed, and | | | patient medications and allergies were reviewed. The | | | patient's tolerance of previous anesthesia was also | | | reviewed. The risks and benefits of the procedure and the | | | sedation options and risks were discussed with the patient. | | | All questions were answered, and informed consent was obtained. | | | Prior Anticoagulants: The patient has taken no previous | | | anticoagulant or antiplatelet agents. ASA Grade Assessment: | | | III - A patient with severe systemic disease. After | | | reviewing the risks and benefits, the patient was deemed in | | | satisfactory condition to undergo the procedure. After | | | obtaining informed consent, the endoscope was passed under direct | | | vision. Throughout the procedure, the patient's blood | | | pressure, pulse, and oxygen saturations were monitored | | | continuously. The Endoscope was introduced through the | | | mouth, and advanced to the third part of duodenum. The | | | upper GI endoscopy was accomplished without difficulty. The | | | patient tolerated the procedure well. | | | | | | | | | Estimated Blood Loss: Estimated blood loss: none. | | | Findings: The examined esophagus was normal. The | | | entire examined stomach was normal. Biopsies were taken with a cold | | | forceps for histology. The examined duodenum was | | | normal. Biopsies were taken with a cold forceps for | | | histology. | | | | | | | | | Impression: - Normal esophagus. | | | - Normal stomach. Biopsied. - Normal examined duodenum. | | | Biopsied. | | | | | | | | | Recommendation: - Patient has a contact | | | number available for emergencies. The signs and symptoms of | | | potential delayed complications were discussed with the | | | patient. Return to normal activities tomorrow. Written discharge | | | instructions were provided to the patient. - Resume | | | previous diet. - Continue present medications. - | | | Await pathology results. | | | | | | | | | Dana Workman, 10/08/2018 | | | 11:58:42 AM This report has been signed electronically. Note | | | Initiated On: 10/08/2018 11:04 AM Number of Addenda: 0 | | | [facility] | | + + + + +---------+ + + | Performing | Address | City/State/Zipcode | Phone Number | | Organization | | | | + +---------+ + + | [facility] | | | | + +---------+ + + EKG STANDARD 12 LEAD (10/04/2018 12:56 PM) + + + + + | Component | Value | Ref Range | Performed At | + + + + + | Ventricular Rate | 81 | BPM | [facility] | + + + + + | Atrial Rate | 81 | BPM | [facility] | + + + + + | P-R Interval | 168 | ms | [facility] | + + + + + | QRS Duration | 76 | ms | [facility] | + + + + + | Q-T Interval | 380 | ms | [facility] | + + + + + | QTC Calculation | 441 | ms | [facility] | | (Bezet) | | | | + + + + + | Calculated P [place] | 15 | degrees | [facility] | + + + + + | Calculated R [place] | -8 | degrees | [facility] | + + + + + | Calculated T [place] | 15 | degrees | [facility] | + + + + + | Diagnosis | Normal sinus | | [facility] | | | rhythmNonspecific ST | | | | | and/or T wave | | | | | abnormalitiesWhen | | | | | compared with ECG of | | | | | 04-FEB-2014 | | | | | 01:25,Questionable | | | | | change in QRS axisT wave | | | | | inversion now evident | | | | | in Inferior leadsQT has | | | | | shortenedConfirmed by | | | | | NELI SPEARS ([id number]) on | | | | | 10/04/2018 2:27:14 PM | | | + + + + + + + + + + | Performing | Address | City/State/Zipcode | Phone Number | | Organization | | | | + + + + + | [facility] | [address] | [place] [address] | | + + + + + CBC W/Auto Diff (Reflex to Manual) (09/16/2018 5:56 PM) + + + + + | Component | Value | Ref Range | Performed At | + + + + + | WBC | 4.88 | 3.80 - 11.00 K/uL | [facility] | + + + + + | RBC | 4.68 | 3.70 - 5.10 M/uL | [facility] | + + + + + | HGB | 14.8 | 11.3 - 15.5 g/dL | [facility] | + + + + + | HCT | 44.8 | 34.0 - 46.0 % | [facility] | + + + + + | MCV | 95.8 | 80.0 - 100.0 fl | [facility] | + + + + + | MCH | 31.6 | 27.0 - 34.0 pg | [facility] | + + + + + | MCHC | 32.9 | 32.0 - 35.5 g/dL | [facility] | + + + + + | RDW SD | 45.9 | 37 - 53 fl | [facility] | + + + + + | PLT | 144 (L) | 150 - 400 K/uL | [facility] | + + + + + | MPV | 9.3 | fl | [facility] | + + + + + | DIFF TYPE | AUTOMATED | | [facility] | + + + + + | NEUTROPHILS | 39.84 | % | [facility] | + + + + + | LYMPHOCYTES | 45.42 | % | [facility] | + + + + + | MONOCYTES | 11.43 | % | [facility] | + + + + + | EOSINOPHILS | 2.33 | % | [facility] | + + + + + | BASOPHILS | 0.98 | % | [facility] | + + + + + | NEUTROPHILS ABS | 1.94 | 1.90 - 7.40 K/uL | [facility] | + + + + + | LYMPHOCYTES ABS | 2.21 | 1.00 - 3.90 K/uL | [facility] | + + + + + | MONOCYTES ABS | 0.56 | 0.00 - 0.80 K/uL | [facility] | + + + + + | EOSINOPHILS ABS | 0.11 | 0.00 - 0.50 K/uL | [facility] | + + + + + | BASOPHILS ABS | 0.05Comment: Testing | 0.00 - 0.10 K/uL | [facility] | | | performed at [facility] – [place];[address] | | | | | [address];[place] | | | | | [id number] | | | + + + + + + + + + + | Performing | Address | City/State/Zipcode | Phone Number | | Organization | | | | + + + + + | [facility] | [address] | [place] [address] | | + + + + + Urinalysis (reflex to microscopic/reflex to culture) (09/16/2018 5:39 PM) + + + + + | Component | Value | Ref Range | Performed At | + + + + + | COLOR UA | YELLOW | | [facility] | + + + + + | CLARITY | CLEAR | | [facility] | + + + + + | Specific [place], UA | 1.016 | 1.002 - 1.030 | [facility] | + + + + + | LEUKOCYTE ESTERASE | NEGATIVE | NEGATIVE | [facility] | + + + + + | NITRITE | NEGATIVE | NEGATIVE | [facility] | + + + + + | UROBILINOGEN | NORMAL | <1.1 mg/dL | [facility] | + + + + + | PROTEIN | NEGATIVE | NEGATIVE mg/dL | [facility] | + + + + + | PH,URINE | 7.0 | 5.0 - 8.0 | [facility] | + + + + + | BLOOD | NEGATIVE | NEGATIVE | [facility] | + + + + + | KETONES | NEGATIVE | NEGATIVE mg/dL | [facility] | + + + + + | BILIRUBIN | NEGATIVE | NEGATIVE | [facility] | + + + + + | GLUCOSE | NEGATIVEComment: Testing | NEGATIVE mg/dL | [facility] | | | performed at [facility] – [place];[facility] | | | | | [address];[place], [place] | | | | | [address] | | | + + + + + + + | Specimen | + + | Urine, Clean Catch | + + + + + + + | Performing | Address | City/State/Zipcode | Phone Number | | Organization | | | | + + + + + | [facility] | [address] | [place] [address] | | + + + + + C-Reactive Protein (09/16/2018 5:39 PM) + + + + + | Component | Value | Ref Range | Performed At | + + + + + | CRP | <0.4Comment: Testing | <0.5 mg/dL | [facility] | | | performed at [facility] – [place], [place];[address] | | | | | [address];[place] | | | | | [address] | | | + + + + + + + | Specimen | + + | Blood | + + + + + + + | Performing | Address | City/State/Zipcode | Phone Number | | Organization | | | | + + + + + | [facility] | [address] | [place] [address] | | + + + + + Lipase (09/16/2018 5:39 PM) + + + + + | Component | Value | Ref Range | Performed At | + + + + + | LIPASE | 51Comment: Testing | 12 - 53 U/L | [facility] | | | performed at [facility] – [place], [place];[address] | | | [address];[place] | | | | | [address] | | | + + + + + + + | Specimen | + + | Blood | + + + + + + + | Performing | Address | City/State/Zipcode | Phone Number | | Organization | | | | + + + + + | [facility] | [address] | [facility] [place] [address] | | + + + + + Complete Metabolic Panel (09/16/2018 5:39 PM) + + + + + | Component | Value | Ref Range | Performed At | + + + + + | SODIUM | 142 | 135 - 145 mmol/L | [facility] | + + + + + | POTASSIUM | 4.7 | 3.5 - 4.9 mmol/L | [facility] | + + + + + | CHLORIDE | 108 | 99 - 109 mmol/L | [facility] | + + + + + | CO2 | 25 | 23 - 32 mmol/L | [facility] | + + + + + | ANION GAP AGAP | 14 | 5 - 20 mmol/L | [facility] | + + + + + | GLUCOSE | 88 | 65 - 99 mg/dL | [facility] | + + + + + | BUN | 10 | 8 - 25 mg/dL | [facility] | + + + + + | CREATININE | 0.55 | 0.50 - 1.00 mg/dL | [facility] | + + + + + | BUN/CREAT | 18 | | [facility] | + + + + + | CALCIUM | 9.0 | 8.5 - 10.5 mg/dL | [facility] | + + + + + | TOTAL PROTEIN | 7.2 | 6.3 - 8.2 g/dL | [facility] | + + + + + | Albumin | 4.3 | 3.6 - 5.0 g/dL | [facility] | + + + + + | GLOBULIN | 2.9 | 1.3 - 4.9 g/dL | [facility] | + + + + + | A/G | 1.5 | 1.0 - 2.4 | [facility] | + + + + + | TBIL | 0.6 | 0.1 - 1.5 mg/dL | [facility] | + + + + + | ALK PHOS | 110 | 35 - 115 U/L | [facility] | + + + + + | AST | 26 | 10 - 45 U/L | [facility] | + + + + + | ALT | 22 | 10 - 65 U/L | [facility] | + + + + + | EGFR | >60Comment: GFR <60: | >60 mL/min/1.73m2 | [facility] | | | CHRONIC KIDNEY DISEASE, | | | | | IF FOUND OVER A 3 MONTH | | | | | PERIOD.GFR <15: KIDNEY | | | | | FAILURE.FOR | | | | | AMERICANS, MULTIPLY THE | | | | | CALCULATED GFR BY | | | | | 1.210.This eGFR is | | | | | calculated using the | | | | | MDRD IDHI traceable | | | | | equation.Testing | | | | | performed at [facility] – [place], [place];[address] | | | | | [address];[place] | | | | | [address] | | | + + + + + + + | Specimen | + + | Blood | + + + + + + + | Performing | Address | City/State/Zipcode | Phone Number | | Organization | | | | + + + + + | [facility] | [address] | [place] [address] | | + + + + + CT Renal Stone Study (09/16/2018 5:27 PM) + + + | Impressions | Performed At | + + + | 1. Bilateral nephrolithiasis, without evidence of hydronephrosis, | [facility] | | no evidence of renal obstruction or inflammatory change | [facility] | | 2. Marked inflammatory scarring about the midline incision at the | | | hernia repair site, near and just superior to the umbilicus. | | | Potentially associated with ongoing symptoms, although similar in | | | appearance to imaging from April 10. Although there is no | | | evidence of elevated portal venous pressures, the liver is somewhat | | | lobular even nodular in appearance. Signed by: Adi Garcia Sign | | | Date/Time: 09/16/2018 5:40 PM | | + + + + + + | Narrative | Performed At | + + + | CT ABDOMEN AND PELVIS WITHOUT CONTRAST (CPT) CT [facility] | [facility] | | INFORMATION: Abdominal pain right side. COMPARISON: CT ABDOMEN | [facility] | | PELVIS W CONTRAST (04/28/2018); CT ABDOMEN PELVIS WO CONTRAST | | | (04/28/2017); SHUNT SERIES (09/21/2008); PROCEDURE: Axial images | | | through the abdomen and pelvis. Multiplanar reconstructions. At | | | least one of the following CT dose optimization techniques were used: | | | Automated exposure control; Adjustment of mA and/or kV according to | | | patient size; Use of iterative reconstruction technique. FINDINGS: | | | KIDNEYS, URETERS and BLADDER: Multiple small nonobstructive stones in | | | the pelves of both kidneys. A total of 3 small stones in the right | | | kidney. On the left, 2 stones on the left, the largest measuring | | | 4-5 mm on image 101 series 3. Calcification in the left hemipelvis on | | | image 253 series 3 is adnexal, and stable from imaging from many | | | months ago Incidental notation made of a peritoneal | | | catheter. Midline scarring and clips in the gallbladder | | | fossa. The midline ventral scarring is irregular, could be a | | | source of ongoing symptoms to the right of midline, but stable to the | | | prior examination without herniated bowel LUNG BASES: Scarring in | | | the lingula, medial inferior lung bases, but without effusion, | | | infiltrate or discrete lesion. No consolidation ABDOMEN Liver and | | | Biliary: Stable to noncontrast technique without intrinsic attic | | | lesion to noncontrast imaging but the margin liver is at least | | | lobular and somewhat nodular in appearance. There is no | | | ascites. No biliary ductal dilatation. Spleen: Normal in | | | size. No intrinsic lesion to noncontrast technique. Adrenal | | | glands: Normal. Pancreas: Normal to technique. ABDOMEN AND PELVIS | | | Bowel: Favor duodenal diverticulum on image 58. Bowel is not | | | obstructed. Appendix not distinguished from other loops of bowel | | | but there is no secondary sign of appendicitis. No abscess, distal | | | diverticulosis without active diverticulitis. No abnormal pelvic | | | fluid or high-grade inflammatory changes to the adjacent fat | | | Vessels: Abdominal aorta normal in caliber. No aneurysm. Veins | | | not assessed without contrast. Lymph Nodes: No adenopathy. | | | Peritoneum and Retroperitoneum: No ascites or free air. No significant | | | retroperitoneal abnormality. PELVIS Genitourinary: No pelvic mass | | | and no significant urethral abnormality. BODY WALL Soft Tissues: No | | | bowel or inflamed fat containing hernia, mass or hemorrhage. Bones: | | | Marked degenerative changes in a dextroconvex rotatory scoliosis of | | | the thoracic lumbar transition. Facet arthropathy. Posterior | | | disc osteophyte disease-multilevel | | + + + + + | Procedure Note | + + | Celestino, Rad Results In - 09/16/2018 5:[address] ABDOMEN AND PELVIS WITHOUT CONTRAST | | (CPT)CT [facility] INFORMATION:Abdominal pain right side.COMPARISON:CT ABDOMEN PELVIS W | | CONTRAST (04/28/2018); CT ABDOMEN PELVIS WOCONTRAST (04/28/2017); SHUNT SERIES | | (09/21/2008);PROCEDURE:Axial images through the abdomen and pelvis. | | Multiplanarreconstructions.At least one of the following CT dose optimization techniques | | wereused: Automated exposure control; Adjustment of mA and/or kV accordingto patient | | size; Use of iterative reconstruction technique.FINDINGS:KIDNEYS, URETERS and BLADDER: | | Multiple small nonobstructive stones inthe pelves of both kidneys.A total of 3 small | | stones in the right kidney. On the left, 2 stoneson the left, the largest measuring 4-5 | | mm on image 101 series 3.Calcification in the left hemipelvis on image 253 series 3 is | | adnexal,and stable from imaging from many months agoIncidental notation made of a | | peritoneal catheter. Midline scarringand clips in the gallbladder fossa. The midline | | ventral scarring isirregular, could be a source of ongoing symptoms to the right | | ofmidline, but stable to the prior examination without herniated bowelLUNG BASES: | | Scarring in the lingula, medial inferior lung bases, butwithout effusion, infiltrate or | | discrete lesion. No consolidationABDOMENLiver and Biliary: Stable to noncontrast | | technique without intrinsicattic lesion to noncontrast imaging but the margin liver is | | at leastlobular and somewhat nodular in appearance.There is no ascites. No biliary | | ductal dilatation.Spleen: Normal in size. No intrinsic lesion to noncontrast | | technique.Adrenal glands: Normal.Pancreas: Normal to technique.ABDOMEN AND PELVISBowel: | | Favor duodenal diverticulum on image 58. Bowel is notobstructed. Appendix not | | distinguished from other loops of bowel butthere is no secondary sign of appendicitis. | | No abscess, distaldiverticulosis without active diverticulitis. No abnormal pelvic | | fluidor high-grade inflammatory changes to the adjacent fatVessels: Abdominal aorta | | normal in caliber. No aneurysm. Veins notassessed without contrast.Lymph Nodes: No | | adenopathy.Peritoneum and Retroperitoneum: No ascites or free air. No | | significantretroperitoneal abnormality.PELVISGenitourinary: No pelvic mass and no | | significant urethral abnormality.BODY WALLSoft Tissues: No bowel or inflamed fat | | containing hernia, mass orhemorrhage.Bones: Marked degenerative changes in a | | dextroconvex rotatory scoliosisof the thoracic lumbar transition. Facet arthropathy. | | Posterior discosteophyte disease-multilevelIMPRESSION:1. Bilateral nephrolithiasis, | | without evidence of hydronephrosis, noevidence of renal obstruction or inflammatory | | change2. Marked inflammatory scarring about the midline incision at thehernia repair | | site, near and just superior to the umbilicus.Potentially associated with ongoing | | symptoms, although similar inappearance to imaging from . Although there is no | | evidence of elevated portal venous pressures,the liver is somewhat lobular even nodular | | in appearance.Signed by: Joel Garcia Date/Time: 09/16/2018 5:40 PM | |there is no secondary sign of appendicitis. No abscess, distal | |diverticulosis without active diverticulitis. No abnormal pelvic fluid | |or high-grade inflammatory changes to the adjacent fat | |Vessels: Abdominal aorta normal in caliber. No aneurysm. Veins not | |assessed without contrast. | |Lymph Nodes: No adenopathy. | |Peritoneum and Retroperitoneum: No ascites or free air. No significant | |retroperitoneal abnormality. | |PELVIS | |Genitourinary: No pelvic mass and no significant urethral abnormality. | |BODY WALL | |Soft Tissues: No bowel or inflamed fat containing hernia, mass or | |hemorrhage. | |Bones: Marked degenerative changes in a dextroconvex rotatory scoliosis | |of the thoracic lumbar transition. Facet arthropathy. Posterior disc | |osteophyte disease-multilevel | |IMPRESSION: | |1. Bilateral nephrolithiasis, without evidence of hydronephrosis, no | |evidence of renal obstruction or inflammatory change | |2. Marked inflammatory scarring about the midline incision at the | |hernia repair site, near and just superior to the umbilicus. | |Potentially associated with ongoing symptoms, although similar in | |appearance to imaging from April | |3. Although there is no evidence of elevated portal venous pressures, | |the liver is somewhat lobular even nodular in appearance. | |Signed by: Adi Garcia | |Sign Date/Time: 09/16/2018 5:40 PM | + + + + + + + | Performing | Address | City/State/Zipcode | Phone Number | | Organization | | | | + + + + + | [facility] | [address] | [place] [address] | | + + + + + ED INFORMATION EXCHANGE (09/16/2018 4:01 PM) + + + | Narrative | Performed At | + + + | [id number] [id number] Criteria Met Care | ED | | Guidelines 10 in Security and Safety No recent Security | INFORMATION | | Events currently on file ED Care Guidelines from [employer] - | EXCHANGE | | [place] Last Updated: 12/26/17 11:09 AM Additional | | | Information: [facility].Has been discharged | | | from services after several no shows and no returned callreschedule | | | appointments. These are guidelines and the provider should exercise | | | clinical judgment when providing care. Prescription Drug | | | Report (12 Mo.) PDMP query found no report. E.D. Visit Count | | | (12 mo.) Facility Visits Low Acuity [facility] 10 0 | | | [facility] 2 0 Total 12 0 Note: Visits | | | indicate total known visits. Medicaid Low Acuity Dx are the number of | | | primary diagnoses on the Medicaid's Low Acuity dx list. Recent | | | Emergency Department Visit Summary Showing 10 most recent visits out | | | of 12 in the past 12 months Date Facility City State Type Diagnoses | | | or Chief Complaint Sep 16, [address] [facility] | | | Emergency Flank Pain Sep 12, 2018 [facility] | | | 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 Emergency r kidney, | | | lower back pain Unspecified abdominal pain Other | | | specified diseases of biliary tract Sep 08, 2018 [facility] | | | [facility] [place] Emergency abd pain diarrhea Diarrhea, | | | unspecified Sep 02, 2018 [facility] [place] | | | Emergency Headache,Diarrhea Unspecified abdominal pain | | | Functional diarrhea Jun 25, 2018 [facility] | | | [place] Emergency ABDOMINAL PAIN Unspecified | | | abdominal pain Other microscopic hematuria Cystitis, | | | unspecified without hematuria May 05, 2018 [facility] | | | [place] Emergency Chief Complaint: ABD PAIN Apr 28, 2018 | | | [facility]. [place] Emergency Abdominal Pain | | | Back Pain Acute parametritis and pelvic cellulitis | | | Apr 01, 2018 [facility] 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 Emergency Chief | | | Complaint: ABD PAIN Recent Inpatient Visit Summary No | | | recorded inpatient visits. Care Providers Provider PRC Type | | | Phone Fax Service Dates Virginia Gaspar CHW Community Health Worker | | | Sep 11, 2018 - Current KEELEY POLANCO | | | Primary Care Current [employer] Mental Health Provider | | | Current Slade Gaspar - | | | MARCUS Thomas Case or Library Attendant | | | Current [place] This patient has registered at the | | | [facility] Emergency Department For more | | | information visit: | | | [email or web address] | | | [email or web address] The above information is provided for the sole purpose of | | | patient treatment. Use of this information beyond the terms of Data | | | Sharing Memorandum of Understanding and License Agreement is | | | prohibited. In certain cases not all visits may be represented. | | | Consult the aforementioned facilities for additional information. | | | 2019 [employer] - [place], [place] - | | | | | + + + + + | Procedure Note | + + | Interface, Lab - 09/16/2018 4:02 PM PDT Formatting of this note may be different | | from the original.[id number] Met Care Guidelines 10 in | | 12Security and SafetyNo recent Security Events currently on fileED Care Guidelines from | | Etecebibi Acevedo Updated: 12/26/17 11:09 AM Additional Information:Last seen by | | Ruba on 09/28/2017.Has been discharged from services after several no shows and no | | returned callreschedule appointments.These are guidelines and the provider should | | exercise clinical judgment when providing care.Prescription Drug Report (12 Mo.)PDMP | | query found no report.E.D. Visit Count (12 mo.)Facility Visits Low Acuity [facility] | | [facility] 10 0 [facility] 2 0 Total 12 0 Note: Visits indicate total | | known visits. Medicaid Low Acuity Dx are the number of primary diagnoses on the | | Medicaid's Low Acuity dx list. Recent Emergency Department Visit SummaryShowing 10 most | | recent visits out of 12 in the past 12 monthsDate Facility City State Type Diagnoses or | | Chief Complaint Sep 16, 2018 [facility] [place]. [place] Emergency Flank Pain | | Sep 12, 2018 [facility] [place] Emergency KIDNEY STONES Spondylosis | | without myelopathy or radiculopathy, lumbar region Right lower quadrant pain | | Spondylosis without myelopathy or radiculopathy, thoracic region Ventral hernia | | without obstruction or gangrene Sep 10, 2018 [facility] [place] Emergency | | r kidney, lower back pain Unspecified abdominal pain Other specified diseases of | | biliary tract Sep 08, 2018 [facility] [place] Emergency abd pain diarrhea | | Diarrhea, unspecified Sep 02, 2018 [facility] [place] Emergency | | Headache,Diarrhea Unspecified abdominal pain Functional diarrhea Jun 25, 2018 | | [facility] [place] Emergency ABDOMINAL PAIN Unspecified abdominal pain | | Other microscopic hematuria Cystitis, unspecified without hematuria May 05, 2018 | | [facility] [place] Emergency Chief Complaint: ABD PAIN Apr 28, 2018 | | [facility]. [place] Emergency Abdominal Pain Back Pain Acute | | parametritis and pelvic cellulitis Apr 01, 2018 [facility] [place] | | Emergency Personal history of nicotine dependence Unspecified abdominal pain | | Other intervertebral disc degeneration, thoracic region Other intervertebral disc | | degeneration, lumbar region Mar 19, 2018 [facility] [place] Emergency | | Chief Complaint: ABD PAIN Recent Inpatient Visit SummaryNo recorded inpatient visits. | | Care ProvidersProvider PRC Type Phone Fax Service Virginia Fisher, MARCUS Community | | Health Worker Sep 11, 2018 - Current KEELEY POLANCO Primary Care | | Current [employer] Mental Health Provider Current | | MARCUS Santana Case or Library Attendant | | [facility] at [facility] | | [place] [facility] For more information visit: | | [email or web address] The above | | information is provided for the sole purpose of patient treatment. Use of this | | information beyond the terms of Data Sharing Memorandum of Understanding and License | | Agreement is prohibited. In certain cases not all visits may be represented. Consult the | | aforementioned facilities for additional information. 2019 [employer] | | [employer] - [place], [place] - [email or web address] | | Ventral hernia without obstruction or gangrene | | | |Sep 10, 2018 [facility] [place] [facility] | | r kidney, lower back pain | | Unspecified abdominal pain | | Other specified diseases of biliary tract | | | |Sep 08, 2018 [facility] [place] [facility] | | abd pain diarrhea | | Diarrhea, unspecified | | | |Sep 02, 2018 [facility] [place] [facility] | | Headache,Diarrhea | | Unspecified abdominal pain | | Functional diarrhea | | | |Jun 25, 2018 [facility] [place] Emergency | | ABDOMINAL PAIN | | Unspecified abdominal pain | | Other microscopic hematuria | | Cystitis, unspecified without hematuria | | | |May 05, 2018 [facility] [place] Emergency Chief Complaint: ABD PAIN | |Apr 28, 2018 [facility] [place] Emergency | | Abdominal Pain | | Back Pain | | Acute parametritis and pelvic cellulitis | | | |Apr 01, 2018 [facility] [place] Emergency | | Personal history of nicotine dependence | | Unspecified abdominal pain | | Other intervertebral disc degeneration, thoracic region | | Other intervertebral disc degeneration, lumbar region | | | |Mar 19, 2018 [facility] [place] Emergency Chief Complaint: ABD PAIN | | | | | |Recent Inpatient Visit Summary | |No recorded inpatient visits. | | | |Care Providers | |Provider PRC Type Phone Fax Service Dates | |Virginia Gaspar CHW Community Health Worker Sep 11, 2018 - Current | |KEELEY POLANCO Primary Care Current | |[employer] Mental Health Provider Current | |MARCUS Santana Case or Library Attendant Current | | | |[employer] Portal | |This patient has registered at the [facility] Emergency Department | |For more information visit: [email or web address] | |The above information is provided for the sole purpose of patient treatment. Use of this in formation beyond the terms of Data Sharing Memorandum of Understanding and License Agreement is prohibited. In | |certain cases not all visits may be represented. Consult the aforementioned facilities for additional information. | |2019 [employer] 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
--- OUTSIDE RECORDS SUMMARY | ~2018-10-10 | XMS | Encounter Summary ---
Demographics + + + | Address | [address] | | | [place] [address] | + + + | Home Phone | | + + + | Preferred Language | Unknown | + + + | Marital Status | Unknown | + + + | Sikhism Affiliation | Unknown | + + + | Race | Unknown | + + + | Ethnic Group | Unknown | + + + Author + + + | Author | [facility] | + + + | Organization | [facility] | + + + | Address | Unknown | + + + | Phone | Unavailable | + + + Support + + + + + | Name | Relationship | Address | Phone | + + + + + | Corazon Gardner | ECON | [address] | | | | | [place] | | | | | [address] | | + + + + + | Juni Morel | ECON | [address] | | | | | [place] | | | | | [address] | | + + + + + Care Team Providers + +------+ + | Care Chief Port Director Name | Role | Phone | [...] + + | 09/05/ | Documentati | [facility] | Tiago Almonte | Other (REFERRAL FROM | | 2019 | on Only | Gastroenterology | MD Jaz[address] | KOFI MCPHERSON) | | | | [address], | [address] | | | | | [facility] [address] [place], | [place] [address] | | | | | [place] [address] | [phone] | | | | | [phone] | | | +--------+ + + + [...] | | | | | | [address] [facility], | | | | | | [place] [address] | | | | | | [phone] | | | | | | | | +--------+---------+ + + + as of this encounter Visit Diagnoses Not on filein this encounter"
--- OUTSIDE RECORDS SUMMARY | ~2018-10-10 | XMS | Encounter Summary ---
Demographics + + + | Address | [address] | | | [place] [address] | + + + | Home Phone | | + + + | Preferred Language | Unknown | + + + | Marital Status | Unknown | + + + | Pentecostal Affiliation | Unknown | + + + | Race | Unknown | + + + | Ethnic Group | Unknown | + + + Author + + + | Author | [facility] | + + + | Organization | [facility] | + + + | Address | Unknown | + + + | Phone | Unavailable | + + + Support + + + + + | Name | Relationship | Address | Phone | + + + + + | Corazon Gardner | ECON | [address] | | | | | [place] | | | | | [address] | | + + + + + | Juni Morel | ECON | [address] | | | | | [place] | | | | | [address] | | + + + + + Care Team Providers + +------+ + | Care Nuclear Technologist Name | Role | Phone | + +------+ + | Keeley Polanco PA-C | PCP | Unavailable | + +------+ + Encounter Details +--------+ + + + + | Date | Type | Department | Care Team | Description | +--------+ + + + + | 10/03/ | Orders Only | [facility] | Salena Almaraz, | Diarrhea, | | 2019 | | Gastroenterology | [place] | unspecified type | | | | [address], | | (Primary Dx); Blood | | | | [address] [place], | | in stool; Nausea; | | | | [place] [address] | | Weight loss; Loss of | | | | [phone] | | appetite | +--------+ + + + + Social [...] Gastroenterology | Dana Workman, | | | 2019 | Visit | | MD [address] | | | | | | [address] [facility], | | | | | | [place] [address] | | | | | | [phone] | | | | | | | [...] | + + | Anorexia | + +"
--- OUTSIDE RECORDS SUMMARY | ~2018-10-10 | XMS | Clinical Summary ---
Demographics + + + | Address | [address] | | | [place] [address] | + + + | Home Phone | | + + + | Preferred Language | Unknown | + + + | Marital Status | | + + + | Orthodox Affiliation | Unknown | + + + | Race | Unknown | + + + | Ethnic Group | Unknown | + + + Author + + + | Author | [facility] | | | and [place] | + + + | Organization | [facility] | | | and [place] | + + + | Address | Unknown | + + + | Phone | Unavailable | + + + Support + + + + + | Name | Relationship | Address | Phone | + + + + + | Corazon Gardner | ECON | [address] | | | | | [place], [place] | | | | | [address] | | + + + + + | AdrielJuni | ECON | [address] | | | | | [place], [place] | | | | | [address] | | + + + + + Care Team Providers + +------+ + | Care Rooter Operator Name | Role | Phone | + +------+ + PP | Unavailable | + +------+ + Allergies Not on File Current Medications Not on file Active Problems Not on file Social History + +-------+ +--------+------+ | Tobacco Use | Types | Packs/Day | Years | Date | | | | | Used | | + +-------+ +--------+------+ | Never Assessed | | | | | + +-------+ +--------+------+ + + + | Sex Assigned at | Date Recorded | | | | + + + | Not on file | | + + + Plan of Treatment + + + + + | Health Maintenance | Due Date | Last Done | Comments | + + + + + | Vaccine: | | | | | Dtap/Tdap/Td (1 - | 5 | | | | Tdap) | | | | + + + + + | Cervical Cancer | | | | | Screening (Pap) | 6 | | | + + + + + | Vaccine: Zoster (1 | | | | | of 2) | 6 | | | + + + + + | Vaccine: Influenza | | | | | (#1) | 8 | | | + + + + + Results Not on filefrom Last 3 Months"
--- OUTSIDE RECORDS SUMMARY | ~2018-10-10 | XMS | Encounter Summary ---
Demographics + + + | Address | [address] | | | [place] [address] | + + + | Home Phone | | + + + | Preferred Language | Unknown | + + + | Marital Status | Unknown | + + + | Confucianism Affiliation | Unknown | + + + | Race | Unknown | + + + | Ethnic Group | Unknown | + + + Author + + + | Author | [facility] | + + + | Organization | [email or web address] | + + + | Address | Unknown | + + + | Phone | Unavailable | + + + Support + + + + + | Name | Relationship | Address | Phone | + + + + + | Corazon Gardner | ECON | [address] | | | | | [place] | | | | | [address] | | + + + + + | Juni Morel | ECON | [address] | | | | | [place] | | | | | [address] | | + + + + + Care Team Providers + +------+ + | Care Director Selection And Administration Name | Role | Phone | + +------+ + | Keeley Polanco PA-C | PCP | Unavailable | + +------+ + Reason for Visit + + + | Reason | Comments | + + + | Flank Pain | bilateral. Hx of kidney stones. | + + + Encounter Details +--------+ + + + + | Date | Type | Department | Care Team | Description | +--------+ + + + + | 09/16/ | Emergency | [facility] | Joe Sales DO | Bilateral flank pain | | 2019 | | [facility] | Emergency | (Primary Dx); | | | | Emergency Department | Department [address] | Nephrolithiasis | | | | [address] | [facility] [address] | | | | | [place] [address] | [place] [address] | | | | | [phone] | [phone] | | | | | | | | +--------+ + + [...] + + + | Blood Pressure | 112/74 | 09/16/2018 6:37 PM PDT | + + + + | Pulse | 85 | 09/16/2018 4:01 PM PDT | + + + + | Temperature | 37.2 C (99 F) | 09/16/2018 6:37 PM PDT | + + + + | Respiratory Rate | 18 | 09/16/2018 6:37 PM PDT | + + + + | Oxygen Saturation | 98% | 09/16/2018 6:37 PM PDT | + + + + | Inhaled Oxygen | - | - | | Concentration | | | + + + + | Weight | 105.1 kg (231 lb | 09/16/2018 4:01 PM PDT | | | 11.3 oz) | | + + + + | Height | - | - | + + + + | Body Mass Index | 41.7 | 09/16/2018 4:01 PM PDT | + + + + in this encounter Discharge Instructions The following attachments cannot be sent through Care Everywhere.Flank Pain, Uncertain Caus e (Mauritanian)in this encounter Medications at Time of Discharge + + +--------+---------+ + + | Medication | Sig. | Disp. | Refills | Start | End Date | | | | | | Date | | + + +--------+---------+ + + | fluticasone | Inhale 1 puff into | | | | | | (FLOVENT HFA) 110 | the lungs 2 (two) | | | | | | MCG/ACT inhaler | times daily. Rinse | | | | | | | mouth after use | | | | | + + +--------+---------+ + + | lisinopril | Take 20 mg by mouth | | | | | | (ZESTRIL) 20 MG | daily. | | | | | | tablet | | | | | | + + +--------+---------+ + + | SUMAtriptan | Take 50 mg by mouth | | | | | | (IMITREX) 50 MG | as needed. | | | | | | tablet | | | | | | + + +--------+---------+ + + | vitamin D2, | Take 1 capsule by | | | 06/26/20 | | | ergocalciferol, | mouth. | | | 17 | | | [address]407 units capsule | | | | | | + + +--------+---------+ + + | doxycycline | Take 1 tablet by | 20 | 0 | 04/28/20 | | | (VIBRA-TABS) 100 MG | mouth 2 (two) times | tablet | | 18 | 9 | | tablet | daily. | | | | | + + +--------+---------+ + + | FLUoxetine | Take 40 mg by mouth | | | | | | (PROZAC) 40 MG | daily. | | | | 9 | | capsule | | | | | | + + +--------+---------+ + + | Iron 25 MG TABS | Take by mouth | | | | | | | daily. | | | | 9 | + + +--------+---------+ + + | metroNIDAZOLE | Take 1 tablet by | 20 | 0 | 04/28/20 | | | (FLAGYL) 500 MG | mouth 2 (two) times | tablet | | 18 | 9 | | tablet | daily. | | | | | + + +--------+---------+ + + | | Take 1-2 tablets by | 20 | 0 | 04/28/20 | | | oxyCODONE-acetaminop | mouth every 4 (four) | tablet | | 18 | 9 | | hen (PERCOCET) 5-325 | hours as needed for | | | | | | MG per tablet | Pain. | | | | | + + +--------+---------+ + + as of this encounter Plan of Treatment +--------+---------+ + + + | Date | Type | Specialty | Care Team | Description | +--------+---------+ + + + | 11/27/ | Office | Gastroenterology | Dana Workman, | | | 2018 | Visit | | [address] | | | | | | [address] [facility], | | | | | | [place] [address] | | | | | | [phone] | | | | | | | | +--------+---------+ + + + as of this encounter Procedures + +--------+ + + + | Procedure Name | Priori | Date/Time | Associated Diagnosis | Comments | | | ty | | | | + +--------+ + + + | CBC W/AUTO DIFF | STAT | 09/16/2018 | | Results for this | | (REFLEX TO MANUAL) | | 5:56 PM | | procedure are in the | | | | PDT | | results section. | + +--------+ + + + | URINALYSIS (REFLEX | STAT | 09/16/2018 | | Results for this | | TO | | 5:39 PM | | procedure are in the | | MICROSCOPIC/REFLEX | | PDT | | results section. | | TO CULTURE) | | | | | + +--------+ + + + | C-REACTIVE PROTEIN | STAT | 09/16/2018 | | Results for this | | | | 5:39 PM | | procedure are in the | | | | PDT | | results section. | + +--------+ + + + | LIPASE | STAT | 09/16/2018 | | Results for this | | | | 5:39 PM | | procedure are in the | | | | PDT | | results section. | + +--------+ + + + | COMPREHENSIVE | STAT | 09/16/2018 | | Results for this | | METABOLIC PANEL | | 5:39 PM | | procedure are in the | | | | PDT | | results section. | + +--------+ + + + | CT URINARY TRACT | DAVID | 09/16/2018 | | Results for this | | ABDOMEN PELVIS WO | | 5:27 PM | | procedure are in the | | CONTRAST | | PDT | | results section. | + +--------+ + + + | ED INFORMATION | Routin | 09/16/2018 | | Results for this | | EXCHANGE | e | 4:01 PM | | procedure are in the | | | | PDT | | results section. | + +--------+ + + + in this encounter Results CBC W/Auto Diff (Reflex to Manual) (09/16/2018 5:56 PM) + + + + + | Component | Value | Ref Range | Performed At | + + + + + | WBC | 4.88 | 3.80 - 11.00 K/uL | [facility] | + + + + + | RBC | 4.68 | 3.70 - 5.10 M/uL | [facility] | + + + + + | HGB | 14.8 | 11.3 - 15.5 g/dL | [facility] | + + + + + | HCT | 44.8 | 34.0 - 46.0 % | [facility] | + + + + + | MCV | 95.8 | 80.0 - 100.0 fl | [facility] | + + + + + | MCH | 31.6 | 27.0 - 34.0 pg | [facility] | + + + + + | MCHC | 32.9 | 32.0 - 35.5 g/dL | [facility] | + + + + + | RDW SD | 45.9 | 37 - 53 fl | [facility] | + + + + + | PLT | 144 (L) | 150 - 400 K/uL | [facility] | + + + + + | MPV | 9.3 | fl | [facility] | + + + [...] 1.94 | 1.90 - 7.40 K/uL | [facility] | + + + + + | LYMPHOCYTES ABS | 2.21 | 1.00 - 3.90 K/uL | [facility] | + + + + + | MONOCYTES ABS | 0.56 | 0.00 - 0.80 K/uL | [facility] | + + + + + | EOSINOPHILS ABS | 0.11 | 0.00 - 0.50 K/uL | [facility] | + + + + + | BASOPHILS ABS | 0.05Comment: Testing | 0.00 - 0.10 K/uL | [facility] | | | performed at [facility];[address] | | | | | [address];[place] | | | | | [address] | | | + + + + + + + + + + | Performing | Address | City/State/Zipcode | Phone Number | | Organization | | | | + + + + + | [facility] | [address] | [place] [address] | | + + + + + Urinalysis (reflex to microscopic/reflex to culture) (09/16/2018 5:39 PM) + + + + + | Component | Value | Ref Range | Performed At | + + + + + | COLOR UA | YELLOW | | [employer] [employer] | + + + + + | CLARITY | CLEAR | | [facility] | + + + + + | Specific [place], UA | 1.016 | 1.002 - 1.030 | [facility] | + + + + + [...] KETONES | NEGATIVE | NEGATIVE mg/dL | [facility] | + + + + + | BILIRUBIN | NEGATIVE | NEGATIVE | [facility] | + + + + + | GLUCOSE | NEGATIVEComment: Testing | NEGATIVE mg/dL | [facility] | | | performed at [facility];[address] | | | | | [address];[place] | | | | | [address] | | | + + + + + + + | Specimen | + + | Urine, Clean Catch | + + + + + + + | Performing | Address | City/State/Zipcode | Phone Number | | Organization | | | | + + + + + | [facility] | [address] | [place] [address] | | + + + + + Lipase (09/16/2018 5:39 PM) + + + + + | Component | Value | Ref Range | Performed At | + + + + + | LIPASE | 51Comment: Testing | 12 - 53 U/L | [facility] | | | performed at [facility];[address] | | [address];[place], [place] | | | | | [address] | | | + + + + + + + | Specimen | + + | Blood | + + + + + + + | Performing | Address | City/State/Zipcode | Phone Number | | Organization | | | | + + + + + | [facility] | [address] | [place] [address] | | + + + + + C-Reactive Protein (09/16/2018 5:39 PM) + + + + + | Component | Value | Ref Range | Performed At | + + + + + | CRP | <0.4Comment: Testing | <0.5 mg/dL | [facility] | | | performed at [facility];[address] | | | | | [address];[place] | | | | | [address] | | | + + + + + + + | Specimen | + + | Blood | + + + + + + + | Performing | Address | City/State/Zipcode | Phone Number | | Organization | | | | + + + + + | [facility] | [address] | [place] [address] | | + + + + + Complete Metabolic Panel (09/16/2018 5:39 PM) + + + + + | Component | Value | Ref Range | Performed At | + + + + + | SODIUM | 142 | 135 - 145 mmol/L | [facility] | + + + + + | POTASSIUM | 4.7 | 3.5 - 4.9 mmol/L | [facility] | + + + + + | CHLORIDE | 108 | 99 - 109 mmol/L | [facility] | + + + + + | CO2 | 25 | 23 - 32 mmol/L | [facility] | + + + + + | ANION GAP AGAP | 14 | 5 - 20 mmol/L | [facility] | + + + + + | GLUCOSE | 88 | 65 - 99 mg/dL | [facility] | + + + + + | BUN | 10 | 8 - 25 mg/dL | [facility] | + + + + + | CREATININE | 0.55 | 0.50 - 1.00 mg/dL | [facility] | + + + + + | BUN/CREAT | 18 | | [facility] | + + + + + | CALCIUM | 9.0 | 8.5 - 10.5 mg/dL | [facility] | + + + + + | TOTAL PROTEIN | 7.2 | 6.3 - 8.2 g/dL | [facility] | + + + + + [...] 0.6 | 0.1 - 1.5 mg/dL | [facility] | + + + + + | ALK PHOS | 110 | 35 - 115 U/L | [facility] | + + + + + | AST | 26 | 10 - 45 U/L | [facility] | + + + + + | ALT | 22 | 10 - 65 U/L | [facility] | + + + + + | EGFR | >60Comment: GFR <60: | >60 mL/min/1.73m2 | [facility] | | | CHRONIC KIDNEY DISEASE, [...] the | | | | | [facility] traceable | | | | | equation.Testing | | | | | performed at [facility] | | | | | [facility];[place], [place] | | | | | [address] | | | + + + + + + + | Specimen | + + | Blood | + + + + + + + | Performing | Address | City/State/Zipcode | Phone Number | | Organization | | | | + + + + + | [facility] | [address] | [place] [address] | | + + + + + [...] nodular in appearance. Signed by: Adi Garcia | | | Date/Time: 09/16/2018 5:40 PM [...] | + + + + + | [facility] | [address] | [place] [address] | | + + + + + ED INFORMATION EXCHANGE (09/16/2018 4:01 PM) + + + | Narrative | Performed At | + + + | [id number] Criteria Met Care | ED | | Guidelines in Security and Safety No recent Security | INFORMATION | | Events currently on file ED Care Guidelines from [employer] - | EXCHANGE | | [place] Last Updated: 12/26/17 11:09 AM Additional | | | Information: Last seen by [facility] on 09/28/2017.Has been discharged | | | from services after several no shows and no returned callreschedule | | | appointments. These are guidelines and the provider should exercise | | | clinical judgment when providing care. Prescription Drug | | | Report (12 Mo.) PDMP query found no report. E.D. Visit Count | | | (12 mo.) Facility Visits [facility] 10 0 | | | [facility] 2 0 Total 12 0 Note: Visits [...] | or Chief Complaint Sep 16, 2018 [facility]. [place] | | | Emergency Flank Pain Sep 12, 2018 [email or web address] | | | 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 Emergency r kidney, | | | lower back pain Unspecified abdominal pain Other | | | specified diseases of biliary tract Sep 08, 2018 [facility] | | [facility] [place] Emergency abd pain diarrhea Diarrhea, | | | unspecified Sep 02, 2018 [email or web address] [place] | | | Emergency Headache,Diarrhea Unspecified abdominal pain | | | Functional diarrhea Jun 25, 2018 [email or web address] | | | [place] Emergency ABDOMINAL PAIN Unspecified | | | abdominal pain Other microscopic hematuria Cystitis, | | | unspecified without hematuria May 05, 2018 [email or web address] | | | [place] Emergency Chief Complaint: ABD PAIN Apr 28, 2018 | | | [facility] Emergency Abdominal Pain | | | Back Pain Acute parametritis and pelvic cellulitis | | | Apr 01, 2018 [facility] 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 Emergency Chief | | | Complaint: ABD PAIN Recent Inpatient Visit Summary No | | | recorded inpatient visits. Care Providers Provider PRC Type | | | Phone Fax Service Virginia Fisher CHW Community Health Worker | | | Sep 11, 2018 - Current KEELEY POLANCO | | | Primary Care Current [facility] Provider | | | Current Slade Gaspar - | | | MARCUS Thomas Case or Vehicle Body Sander | | | Current [employer] [facility] This patient has registered at the | | | [facility] Emergency Department For more | | | information visit: | | | [email or web address] | | | [email or web address] The above information is provided for the sole purpose of | | | patient treatment. Use of this information beyond the terms of Data | | | Sharing Memorandum of Understanding and License Agreement is | | | prohibited. In certain cases not all visits may be represented. | | | Consult the aforementioned facilities for additional information. | | | 2019 [employer] - [place], [place] - | | | | | + + + + + | Procedure Note | + + | Interface, Lab - 09/16/2018 4:02 PM PDT Formatting of this note may be different | | from the original.[id number] Met Care Guidelines 10 in | | 12Security and SafetyNo recent Security Events currently on fileED Care Guidelines from | | [facility] - [place] Updated: 12/26/17 11:09 AM Additional Information:Last seen by | | [facility]a on 09/28/2017.Has been discharged from services after several no shows and no | | returned callreschedule appointments.These are guidelines and the provider should | | exercise clinical judgment when providing care.Prescription Drug Report (12 Mo.)PDMP | | query found no report.E.D. Visit Count (12 mo.)Facility Visits [facility] | | [facility] 10 0 [facility] 2 0 Total 12 0 Note: Visits [...] | | Chief Complaint Sep 16, 2018 [facility] [place]. [place] Emergency Flank Pain | | Sep 12, 2018 [facility] [place] Emergency KIDNEY STONES Spondylosis | | without myelopathy or radiculopathy, lumbar region Right lower quadrant pain | | Spondylosis without myelopathy or radiculopathy, thoracic region Ventral hernia | | without obstruction or gangrene Sep 10, 2018 [facility] [place] Emergency | | r kidney, lower back pain Unspecified abdominal pain Other specified diseases of | | biliary tract Sep 08, 2018 [facility] [place] Emergency abd pain diarrhea | | Diarrhea, unspecified Sep 02, 2018 [facility] [place] Emergency | | Headache,Diarrhea Unspecified abdominal pain Functional diarrhea Jun 25, 2018 | | [facility] [place] Emergency ABDOMINAL PAIN Unspecified abdominal pain | | Other microscopic hematuria Cystitis, unspecified without hematuria May 05, 2018 | | [facility] [place] Emergency Chief Complaint: ABD PAIN Apr 28, 2018 | | [facility]. [place] Emergency Abdominal Pain Back Pain Acute | | parametritis and pelvic cellulitis Apr 01, 2018 [facility] [place] | | Emergency Personal history of nicotine dependence Unspecified abdominal pain | | Other intervertebral disc degeneration, thoracic region Other intervertebral disc | | degeneration, lumbar region Mar 19, 2018 [facility] [place] Emergency | | Chief Complaint: ABD PAIN Recent Inpatient Visit SummaryNo recorded inpatient visits. | | Care ProvidersProvider [facility] Type Phone Fax Service Virginia Fisher CHW Community | | Health Worker Sep 11, 2018 - Current KEELEY POLANCO Primary Care | | Current [facility] Mental Health Provider Current | | MARCUS Santana Case or Vehicle Body Sander | | Current [facility] PortalThis patient has registered at the [facility] | | [place] Emergency Department For more information visit: | | [email or web address] The above | | information is provided for the sole purpose of patient treatment. Use of this | | information beyond the terms of Data Sharing Memorandum of Understanding and License | | Agreement is prohibited. In certain cases not all visits may be represented. Consult the | | aforementioned facilities for additional information. 2019 [facility] | | [employer] - [place], [place] - | | Ventral hernia without obstruction or gangrene | | | |Sep 10, 2018 [facility] [place] Emergency | | r kidney, lower back pain | | Unspecified abdominal pain | | Other specified diseases of biliary tract | | | |Sep 08, 2018 [facility] [place] Emergency | | abd pain diarrhea | | Diarrhea, unspecified | | | |Sep 02, 2018 [facility] [place] Emergency | | Headache,Diarrhea | | Unspecified abdominal pain | | Functional diarrhea | | | |Jun 25, 2018 [facility] [place] Emergency | | ABDOMINAL PAIN | | Unspecified abdominal pain | | Other microscopic hematuria | | Cystitis, unspecified without hematuria | | | |May 05, 2018 [facility] [place] Emergency Chief Complaint: ABD PAIN | |Apr 28, 2018 [facility]. [place] Emergency | | Abdominal Pain | | Back Pain | | Acute parametritis and pelvic cellulitis | | | |Apr 01, 2018 [facility] [place] Emergency | | Personal history of nicotine dependence | | Unspecified abdominal pain | | Other intervertebral disc degeneration, thoracic region | | Other intervertebral disc degeneration, lumbar region | | | |Mar 19, 2018 [facility] [place] Emergency Chief Complaint: ABD PAIN | | | | | |Recent Inpatient Visit Summary | |No recorded inpatient visits. | | | |Care Providers | |Provider PRC Type Phone Fax Service Dates | |Virginia Gaspar CHW Community Health Worker Sep 11, 2018 - Current | |KEELEY POLANCO Primary Care Current | |[facility] Provider Current | |MARCUS Santana Case or Vehicle Body Sander Current | | | |[employer] | |This patient has registered at the [facility] Emergency Department | |For more information visit: [email or web address] | |The above information is provided for the sole purpose of patient treatment. Use of this in formation beyond the terms of Data Sharing Memorandum of Understanding and License Agreement is prohibited. In | |certain cases not all visits may be represented. Consult the aforementioned facilities for additional information. | |2019 [employer] - [place], [place] - [email or web address] | + + + +---------+ + + | Performing | Address | City/State/Zipcode | Phone Number | | Organization | | | | + +---------+ + + | ED INFORMATION | | | | | EXCHANGE | | | | + +---------+ + + in this encounter Visit Diagnoses + + | Diagnosis | + + | Bilateral flank pain - Primary | + + | Abdominal pain, unspecified site | + + | Nephrolithiasis | + + | Calculus of kidney | + + Admitting Diagnoses + + | Diagnosis | + + | Nephrolithiasis | + + | Calculus of kidney | + + | Bilateral flank pain | + + | Abdominal pain, unspecified site | + +"
--- OUTSIDE RECORDS SUMMARY | ~2018-10-10 | XMS | Encounter Summary ---
Demographics + + + | Address | [address] | | | [place] [address] | + + + | Home Phone | | + + + | Preferred Language | Unknown | + + + | Marital Status | Unknown | + + + | Sabianist Affiliation | Unknown | + + + | Race | Unknown | + + + | Ethnic Group | Unknown | + + + Author + + + | Author | [facility] | + + + | Organization | [facility] | + + + | Address | Unknown | + + + | Phone | Unavailable | + + + Support + + + + + | Name | Relationship | Address | Phone | + + + + + | Corazon Gardner | ECON | [address] | | | | | [place] | | | | | [address] | | + + + + + | Juni Morel | ECON | [address] | | | | | [place] | | | | | [address] | | + + + + + Care Team Providers + +------+ + | Care Wallpaper Hanger Helper Name | Role | Phone | + [...] + + | 10/07/ | Telephone | [facility] | Saelna Almaraz, | Other (Approval for | | 2018 | | Gastroenterology | [place] | procedure) | | | | [address], | | | | | | [address] [facility] | | | | | | [place] [address] | | | | | | [phone] | | | +--------+ + + + [...] | | | | | | [address] [facility], | | | | | | [place] [address] | | | | | | [phone] | | | | | | | | +--------+---------+ + + + as of this encounter Visit Diagnoses Not on filein this encounter"
--- OUTSIDE RECORDS SUMMARY | ~2018-10-10 | XMS | Clinical Summary ---
Demographics + + + | Address | [address] | | | [place] [address] | + + + | Home Phone | | + + + | Preferred Language | Unknown | + + + | Marital Status | | + + + | Hoahaoism Affiliation | Unknown | + + + | Race | Unknown | + + + | Ethnic Group | Unknown | + + + Author + + + | Author | [facility] | | | and [place] | + + + | Organization | [facility] | | | and [place] | + + + | Address | Unknown | + + + | Phone | Unavailable | + + + Support + + + + + | Name | Relationship | Address | Phone | + + + + + | Corazon Gardner | ECON | [address] | | | | | [place], [place] | | | | | [address] | | + + + + + | AdrielJuni | ECON | [address] | | | | | [place], [place] | | | | | [address] | | + + + + + Care Team Providers + +------+ + | Care Vinegar Maker Name | Role | Phone | + [...]
--- OUTSIDE RECORDS SUMMARY | ~2018-10-10 | XMS | Encounter Summary ---
Demographics + + + | Address | [address] | | | [place] [address] | + + + | Home Phone | | + + + | Preferred Language | Unknown | + + + | Marital Status | Unknown | + + + | Anglican Affiliation | Unknown | + + + | Race | Unknown | + + + | Ethnic Group | Unknown | + + + Author + + + | Author | [facility] | + + + | Organization | [facility] | + + + | Address | Unknown | + + + | Phone | Unavailable | + + + Support + + + + + | Name | Relationship | Address | Phone | + + + + + | Corazon Gardner | ECON | [address] | | | | | [place] | | | | | [address] | | + + + + + | Juni Morel | ECON | [address] | | | | | [place] | | | | | [address] | | + + + + + Care Team Providers + +------+ + | Care Gambling Dealer Name | Role | Phone | + +------+ + | Keeley Polanco PA-C | PCP | Unavailable | + +------+ + Encounter Details +--------+ + + + + | Date | Type | Department | Care Team | Description | +--------+ + + + + | 10/08/ | Procedure | [facility] | | | | 2019 | [facility] | | | | | | Endoscopy [address] | | | | | | [place], [place] | | | | | | [address] | | | +--------+ + + + [...] | | | | | 1st [facility], | | | | | | [place] [address] | | | | | | [phone] | | | | | | | | +--------+---------+ + + + as of this encounter Visit Diagnoses Not on filein this encounter"
--- OUTSIDE RECORDS SUMMARY | ~2018-10-10 | XMS | Encounter Summary ---
Demographics + + + | Address | [address] | | | [place] [address] | + + + | Home Phone | | + + + | Preferred Language | Unknown | + + + | Marital Status | Unknown | + + + | Buddhist Affiliation | Unknown | + + + | Race | Unknown | + + + | Ethnic Group | Unknown | + + + Author + + + | Author | [facility] | + + + | Organization | [facility] | + + + | Address | Unknown | + + + | Phone | Unavailable | + + + Support + + + + + | Name | Relationship | Address | Phone | + + + + + | Corazon Gardner | ECON | [address] | | | | | [place] | | | | | [address] | | + + + + + | Juni Morel | ECON | [address] | | | | | [place] | | | | | [address] | | + + + + + Care Team Providers + +------+ + | Care Sr. Strategic Sourcing Manager Name | Role | Phone | + +------+ + | Keeley Polanco PA-C | PCP | Unavailable | + +------+ + Reason for Visit Auth/Cert +--------+--------+ + + + + | Status | Reason | Specialty | Diagnoses / | Referred By | Referred To | | | | | Procedures | Contact | Contact | +--------+--------+ + + + + | | | | Diagnoses | | | | | | | DIARRHEA, | | | | | | | BLOOD IN | | | | | | | STOOL, | | | | | | | NAUSEA | | | | | | | Procedures | | | | | | | COLONOSCOPY | | | | | | | W/ EGD | | | +--------+--------+ + + + + Encounter Details +--------+ + + + + | Date | Type | Department | Care Team | Description | +--------+ + + + + | 10/08/ | Hospital | [facility] | Dana Workman, | Diarrhea; Blood in | | 2019 | Encounter | [facility] | MD [address] | stool; Nausea; | | | | Endoscopy [address] | [address]st Floor [place], | Diarrhea, | | | | Blvd [place], [place] | [place] [address] | unspecified type; | | | | [address] | [phone] | Blood in stool; | | | | | | Nausea | +--------+ + + + + Social [...] + + + + in this encounter Medications at Time of Discharge + + +-------+---------+ + + | Medication | Sig. | Disp. | Refills | Start | End Date | | | | | | Date | | + + +-------+---------+ + + | divalproex | Take 250 mg by | | | | | | (DEPAKOTE) 250 MG EC | mouth. | | | | | | tablet | | | | | | + + +-------+---------+ + + | fluticasone | Inhale 1 puff into | | | | | | (FLOVENT HFA) 110 | the lungs 2 (two) | | | | | | MCG/ACT inhaler | times daily. Rinse | | | | | | | mouth after use | | | | | + + +-------+---------+ + + | lisinopril | Take 20 mg by mouth | | | | | | (ZESTRIL) 20 MG | daily. | | | | | | tablet | | | | | | + + +-------+---------+ + + | metoclopramide | Take 10 mg by mouth | | | | | | (REGLAN) 10 MG | 4 (four) times daily | | | | | | tablet | before meals and | | | | | | | nightly. | | | | | + + +-------+---------+ + + | SUMAtriptan | Take 50 mg by mouth | | | | | | (IMITREX) 50 MG | as needed. | | | | | | tablet | | | | | | + + +-------+---------+ + + | traZODone | Take 100 mg by | | | | | | (DESYREL) 100 MG | mouth. | | | | | | tablet | | | | | | + + +-------+---------+ + + | vitamin D2, | Take 1 capsule by | | | 06/26/20 | | | ergocalciferol, | mouth. | | | 17 | | | [address] units capsule | | | | | | + + +-------+---------+ + + as of this encounter Plan of Treatment +--------+---------+ + + + | Date | Type | Specialty | Care Team | Description | +--------+---------+ + + + | 11/27/ | Office | Gastroenterology | Dana Wrokman, | | | 2018 | Visit | | [address] | | | | | | 1st Floor [facility] | | | | | | [place] [address] | | | | | | [phone] | | | | | | | [...] in | | | place | +---+--------+ in this encounter Results Pathology histology - tissue (10/08/2018 2:00 PM) + + | Specimen | + + | Tissue | + + + + + | Narrative | Performed At | + + + | SPECIMEN(S): A DUODENAL BIOPSY SPECIMEN(S): B GASTRIC BIOPSY | [facility] | | SPECIMEN(S): C RANDOM RIGHT COLON [...] received in formalin and consists of one tqun-sfn-ocj soft tissue | | | fragment that [...] component was | | | performed by [facility], [address] [place] [address] | | | (Corporate Specialist: Earline Rhodes MD; CLIA# [id number]). Professional | | | [facility] | | | [address] [address] (Medical | | | Director: Joe Mustafa M.D.; CLIA#: [id number]). | | | Diagnostician: Earline Rhodes MD Pathologist Electronically Signed | | | 10/09/2018 | | + + + + +---------+ + + | Performing | Address | City/State/Zipcode | Phone Number | | Organization | | | | + +---------+ + + | [facility] | | | | + +---------+ + + Colonoscopy procedures (10/08/2018 11:17 AM) + + + | Narrative | Performed At | + + + | [facility] | [facility] | | | [place] | | Patient Name: Qiana Carr Ann Procedure Date: | | | 10/08/2018 11:17 AM MRN: | | | [id number] Account | | | Number: [id number] Date of : | | | 1965 [...] Number of Addenda: 0 | | | [facility] | | + + + + +---------+ + + | Performing | Address | City/State/Zipcode | Phone Number | | Organization | | | | + +---------+ + + | [facility] | | | | + +---------+ + + EGD (10/08/2018 11:04 AM) + + + | Narrative | Performed At | + + + | [facility] | [facility] | | | [place] | | Patient Name: Qiana Carr Procedure Date: | | | 10/08/2018 11:04 AM MRN: | | | [id number] Account | | | Number: [id number] Date of : | | | 1965 [...] Number of Addenda: 0 | | | [facility] | | + + + + +---------+ + + | Performing | Address | City/State/Zipcode | Phone Number | | Organization | | | | + +---------+ + + | [facility] | | | | + +---------+ + + in this encounter Visit Diagnoses + + | Diagnosis | + + | Diarrhea, unspecified type | + + | Blood in stool | + + | Nausea | + + | Nausea alone | + + Admitting Diagnoses + + | Diagnosis | + + | Blood in stool | + + | Diarrhea | + + | Nausea | + + | Nausea alone | + + | Diarrhea, unspecified type | + + Administered Medications + +---------+ +------+ +------+ | Medication Order | MAR | Action | Dose | Rate | Site | | | Action | Date | | | | + +---------+ +------+ +------+ | sodium chloride 0.9 % infusion | New Bag | 10/08/2018 | | 30 mL/hr | | | at 30 mL/hr, Intravenous, | | 10:57 | | | | | Continuous, Starting 10/08/18 | | PDT | | | | | at 1030, Pre-op | | | | | | + +---------+ +------+ +------+ +---+---+ | | | +---+---+ in this encounter
--- OUTSIDE RECORDS SUMMARY | ~2018-10-10 | XMS | Encounter Summary ---
Demographics + + + | Address | [address] | | | [place] [address] | + + + | Home Phone | | + + + | Preferred Language | Unknown | + + + | Marital Status | Unknown | + + + | Zoroastrian Affiliation | Unknown | + + + | Race | Unknown | + + + | Ethnic Group | Unknown | + + + Author + + + | Author | [facility] | + + + | Organization | [facility] | + + + | Address | Unknown | + + + | Phone | Unavailable | + + + Support + + + + + | Name | Relationship | Address | Phone | + + + + + | Corazon Gardner | ECON | [address] | | | | | [place] | | | | | [address] | | + + + + + | Juni Morel | ECON | [address] | | | | | [place] | | | | | [address] | | + + + + + Care Team Providers + +------+ + | Care Insurance Account Specialist Name | Role | Phone | [...] Description | +--------+---------+ + + + | 10/08/ | Surgery | [facility] | Dana Workman, | COLONOSCOPY W/ EGD | | 2019 | | [facility] | [address] | | | | | Endoscopy [address] [facility] | 1st Floor [place], | | | | | Blvd [place], [place] | [place] [address] | | | | | [address] | [phone] | | | | | | | | +--------+---------+ + + + Social History [...] | | | 17 | | | [address] units capsule | | | | | [...] | | | | | 1st Floor [place], | | | | | | [place] [address] | | | | | | [phone] | | | | | | | [...] DUODENAL BIOPSY SPECIMEN(S): B GASTRIC BIOPSY | [facility] | | SPECIMEN(S): C RANDOM RIGHT COLON [...] received in formalin and consists of one eheo-ctd-cpz soft tissue | | | fragment that [...] component was | | | performed by [facility], [address] [place] [address] | | | (Measurement Psychologist: Earline Rhodes MD; CLIA# [id number]). Professional | | | [facility] | | | [address] [address] (Medical | | | Director: Joe Mustafa M.D.; CLIA#: [id number]). | | | Diagnostician: Earline Rhodes MD Pathologist Electronically Signed | | | 10/09/2018 | | + + + + +---------+ + + | Performing | Address | City/State/Zipcode | Phone Number | | Organization | | | | + +---------+ + + | [facility] | | | | + +---------+ + + Colonoscopy procedures (10/08/2018 11:17 AM) + + + | Narrative | Performed At | + + + | [facility] | [facility] | | | [place] | | Patient Name: Qiana Carr Ann Procedure Date: | | | 10/08/2018 11:17 AM MRN: | | | [id number] Account | | | Number: [id number] Date of : | | | 1965 Note Status: Finalized Attending | | | MD: Dana Workman , Instrument Name: Alexia Colonoscope | | | | | | [...] | | | | | | Dana Shebrandon, 10/08/2018 | | | 12:06:35 PM This report has been signed electronically. Note | | | Initiated On: 10/08/2018 11:17 AM Number of Addenda: 0 | | | [facility] | | + + + + +---------+ + + | Performing | Address | City/State/Zipcode | Phone Number | | Organization | | | | + +---------+ + + | [facility] | | | | + +---------+ + + EGD (10/08/2018 11:04 AM) + + + | Narrative | Performed At | + + + | [facility] | [facility] | | | [place] | | Patient Name: Qiana Carr Procedure Date: | | | 10/08/2018 11:04 AM MRN: | | | [id number] Account | | | Number: [id number] Date of : | | | 1965 [...] Number of Addenda: 0 | | | [facility] | | + + + + +---------+ + + | Performing | Address | City/State/Zipcode | Phone Number | | Organization | | | | + +---------+ + + | [facility] | | | | + +---------+ + + in this encounter Visit Diagnoses Not on filein this encounter Admitting Diagnoses + + | Diagnosis | + + | Blood in stool | + + | Diarrhea | + + | Nausea | + + | Nausea alone | + + | Diarrhea, unspecified type | + + Administered Medications + +--------+ +--------+------+------+ | Medication Order | MAR | Action | Dose | Rate | Site | | | Action | Date | | | | + +--------+ +--------+------+------+ | EPINEPHrine injection PRN, | Given | 10/08/2018 | 0.4 mg | | | | Starting 10/08/18 at 1154, | | 11:54 | | | | | Intra-procedure (GI) | | PDT | | | | + +--------+ +--------+------+------+ +---+---+ | | | +---+---+ + +---------+ +---+ +---+ | sodium chloride 0.9 % infusion | New Bag | 10/08/2018 | | 30 mL/hr | | | at 30 mL/hr, Intravenous, | | 10:57 | | | | | Continuous, Starting 10/08/18 | | PDT | | | | | at 1030, Pre-op | | | | | | + +---------+ +---+ +---+ +---+---+ | | | +---+---+ in this encounter
--- OUTSIDE RECORDS SUMMARY | ~2018-10-10 | XMS | Encounter Summary ---
Demographics + + + | Address | [address] | | | [place] [address] | + + + | Home Phone | | + + + | Preferred Language | Unknown | + + + | Marital Status | Unknown | + + + | Mandaen Affiliation | Unknown | + + + | Race | Unknown | + + + | Ethnic Group | Unknown | + + + Author + + + | Author | [facility] | + + + | Organization | [facility] | + + + | Address | Unknown | + + + | Phone | Unavailable | + + + Support + + + + + | Name | Relationship | Address | Phone | + + + + + | Corazon Gardner | ECON | [address] | | | | | [place] | | | | | [address] | | + + + + + | Juni Morel | ECON | [address] | | | | | [place] | | | | | [address] | | + + + + + Care Team Providers + +------+ + | Care Case Work Aide Name | Role | Phone | + +------+ + | Keeley Polanco PA-C | PCP | Unavailable | + +------+ + Encounter Details +--------+ + + + + | Date | Type | Department | Care Team | Description | +--------+ + + + + | 10/03/ | Orders Only | [facility] | Salena Amlaraz, | Diarrhea, | | 2019 | | Gastroenterology | [place] | unspecified type | | | | [address], | | (Primary Dx); Blood | | | | [address] [place], | | in stool; Nausea; | | | | [place] [address] | | Weight loss; Loss of | | | | [phone] | | appetite | +--------+ + + [...] | | | | | | 1st [facility], | | | | | | [place] [address] | | | | | | [phone] | | | | | | | [...]
--- OUTSIDE RECORDS SUMMARY | ~2018-10-10 | XMS | Encounter Summary ---
Demographics + + + | Address | [address] | | | [place] [address] | + + + | Home Phone | | + + + | Preferred Language | Unknown | + + + | Marital Status | Unknown | + + + | Presybeterian Affiliation | Unknown | + + + | Race | Unknown | + + + | Ethnic Group | Unknown | + + + Author + + + | Author | [facility] | + + + | Organization | [facility] | + + + | Address | Unknown | + + + | Phone | Unavailable | + + + Support + + + + + | Name | Relationship | Address | Phone | + + + + + | Corazon Gardner | ECON | [address] | | | | | [place] | | | | | [address] | | + + + + + | Juni Morel | ECON | [address] | | | | | [place] | | | | | [address] | | + + + + + Care Team Providers + +------+ + | Care Carousel Operator Name | Role | Phone | [...] + + + + | 10/08/ | Anesthesia | [facility] | Alexis Beck | | | 2018 | [facility] | [address] | | | | | Endoscopy [address] | [address] | | | | | [place], [place] | [place] [address] | | | | | [address] | [phone] | | | | | | | | +--------+ + + + + Anesthesia Record + + + + + | Procedure Name | Responsible | Anesthesia Start | Anesthesia Stop Time | | | Anesthesiologist | Time | | + + + + + | COLONOSCOPY W/ EGD | Alexis Beck, | 10/08/18 1103 | 10/08/18 1159 | | (N/A Lower GI) | 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 | | /0 | 1 | | | | 2/ | 0 | | | | 20 | 3 | | | | 19 | | | | +----+---+ + + | | 1 | Quick Note | Pt ID'd and consented in holding. To GI on stretcher. Positioned | | | 1 | | self left lateral for comfort. SASA monitors. O2 @ 4L/min via NC. | | | 0 | | Sedation started. Eyes clear and all PPP. Pt breathing | | | 8 | | spontaneously throughout. | +----+---+ + + | | 1 | Quick Note | BP failed to cycle. Cuff adjusted, BP recycled | | | 1 | | | | | 2 | | | | | 2 | | | +----+---+ + + | | 1 | an stop | | | | 1 | data | | | | 5 | | | | | 6 | | | +----+---+ + + | | 1 | An Stop | | | | 1 | | | | | 5 | | | | | 9 | | | +----+---+ + + +------+ | Meds | +------+ + + + | Name | Total | + + + | propofol bolus | 260 mg | + + + | propofol infusion | 549.05 mg | + + + | sodium chloride 0.9 % infusion | 900 mL | + + + + + | Name | + + | Aux O2 (L/min) | + + | N2O | + + + + | No blood administrations on file. | + + +--------+ + + + | Type | Details | Placement | Removal | +--------+ + + + | Periph | Placement Date: 10/08/18; | 10/08/18 1048 by | 10/08/18 1229 by | | eral | Placement Time: 1048; Removal | Mindy Madden RN | Lee Ann Saunders RN | | IV | Date: 10/08/18; Removal Time: | | | | | 1229; Size (Gauge): 20 G; | | | | | Orientation: Right; Location: | | | | | Hand; Site Prep: | | | | | Chlorhexidine-Isopropyl Alcohol; | | | | | Insertion Attempts: 2 | | | +--------+ + + + in this encounter Social History + +-------+ +--------+ + | [...] | | | | | 1st [facility], | | | | | | [place] [address] | | | | | | [phone] | | | | | | | | +--------+---------+ + + + as of this encounter Visit Diagnoses Not on filein this encounter Administered Medications + +--------+ +-------+------+------+ | Medication Order | MAR | Action | Dose | Rate | Site | | | Action | Date | | | | + +--------+ +-------+------+------+ | propofol (DIPRIVAN) injection | Given | 10/08/2018 | 30 mg | | | | Intravenous, PRN, Starting Tue | | 11:21 | | | | | 10/08/18 at 1112, Anesthesia | | PDT | | | | | Intra-op | | | | | | + +--------+ +-------+------+------+ +-------+ +-------+---+---+ | Given | 10/08/2018 | 40 mg | | | | | 11:36 | | | | | | PDT | | | | +-------+ +-------+---+---+ | Given | 10/08/2018 | 20 mg | | | | | 11:54 | | | | | | PDT | | | | +-------+ +-------+---+---+ +---+---+ | | | +---+---+ + + + + +-------+---+ | propofol infusion Intravenous, | Rate/Dos | 10/08/2018 | 120 | 74.4 | | | Continuous PRN, Starting Tue | e Change | 11:25 | mcg/kg/m | mL/hr | | | 10/08/18 at 1108, Anesthesia | | PDT | in | | | | Intra-op | | | | | | + + + + +-------+---+ + + + +-------+---+ | Rate/Dose Change | 10/08/2018 | 130 | 80.7 | | | | 11:37 | mcg/kg/m | mL/hr | | | | PDT | in | | | + + + +-------+---+ | Rate/Dose Change | 10/08/2018 | 80 | 49.6 | | | | 11:50 | mcg/kg/m | mL/hr | | | | PDT | in | | | + + + +-------+---+ +---+---+ | | | +---+---+ in this encounter"
--- OUTSIDE RECORDS SUMMARY | ~2018-10-10 | XMS | Encounter Summary ---
Demographics + + + | Address | [address] | | | [place] [address] | + + + | Home Phone | | + + + | Preferred Language | Unknown | + + + | Marital Status | Unknown | + + + | Amish Affiliation | Unknown | + + + | Race | Unknown | + + + | Ethnic Group | Unknown | + + + Author + + + | Author | [facility] | + + + | Organization | [facility] | + + + | Address | Unknown | + + + | Phone | Unavailable | + + + Support + + + + + | Name | Relationship | Address | Phone | + + + + + | Corazon Gardner | ECON | [address] | | | | | [place] | | | | | [address] | | + + + + + | Juni Morel | ECON | [address] | | | | | [place] | | | | | [address] | | + + + + + Care Team Providers + +------+ + | Care Armature Winder Name | Role | Phone | + [...] + + | 10/08/ | Surgery | [facility] | Dana Workman, | COLONOSCOPY W/ EGD | | 2019 | | [facility] | [address] | | | | | Endoscopy [address] [facility] | 1st Floor [place], | | | | | Blvd [place], [place] | [place] [address] | | | | | [address] | [phone] | | | | | | | [...] | | | 17 | | | [id number] units capsule | | | | | [...] | | | | | 1st Floor [place], | | | | | | [place] [address] | | | | | | [phone] | | | | | | | [...] DUODENAL BIOPSY SPECIMEN(S): B GASTRIC BIOPSY | [facility] | | SPECIMEN(S): C RANDOM RIGHT COLON [...] received in formalin and consists of one lmri-uot-nda soft tissue | | | fragment that [...] component was | | | performed by [facility], [address] [place] [address] | | | (Ems Helicopter Pilot: Earline Rhodes MD; CLIA# [id number]). Professional | | | [facility] | | | [address] [address] (Medical | | | Director: Joe Mustafa M.D.; CLIA#: [id number]). | | | Diagnostician: Earline Rhodes MD Pathologist Electronically Signed | | | 10/09/2018 | | + + + + +---------+ + + | Performing | Address | City/State/Zipcode | Phone Number | | Organization | | | | + +---------+ + + | [facility] | | | | + +---------+ + + Colonoscopy procedures (10/08/2018 11:17 AM) + + + | Narrative | Performed At | + + + | [facility] | [facility] | | | [place] | | Patient Name: Qiana Carr Ann Procedure Date: | | | 10/08/2018 11:17 AM MRN: | | | [id number] Account | | | Number: [id number] Date of : | | | 1965 [...] Number of Addenda: 0 | | | [facility] | | + + + + +---------+ + + | Performing | Address | City/State/Zipcode | Phone Number | | Organization | | | | + +---------+ + + | [facility] | | | | + +---------+ + + EGD (10/08/2018 11:04 AM) + + + | Narrative | Performed At | + + + | [facility] | [facility] | | | [place] | | Patient Name: Qiana Carr Procedure Date: | | | 10/08/2018 11:04 AM MRN: | | | [id number] Account | | | Number: [id number] Date of : | | | 1965 [...] Number of Addenda: 0 | | | [facility] | | + + [...]
--- OUTSIDE RECORDS SUMMARY | ~2018-10-10 | XMS | Encounter Summary ---
Demographics + + + | Address | [address] | | | [place] [address] | + + + | Home Phone | | + + + | Preferred Language | Unknown | + + + | Marital Status | Unknown | + + + | Restorationist Affiliation | Unknown | + + + | Race | Unknown | + + + | Ethnic Group | Unknown | + + + Author + + + | Author | [facility] | + + + | Organization | [facility] | + + + | Address | Unknown | + + + | Phone | Unavailable | + + + Support + + + + + | Name | Relationship | Address | Phone | + + + + + | Corazon Gardner | ECON | [address] | | | | | [place] | | | | | [address] | | + + + + + | Juni Morel | ECON | [address] | | | | | [place] | | | | | [address] | | + + + + + Care Team Providers + +------+ + | Care Life Support Technician Name | Role | Phone | + [...] + + | 09/16/ | Emergency | [facility] | Joe Sales DO | Bilateral flank pain | | 2019 | | [facility] | Emergency | (Primary Dx); | | | | Emergency Department | Department [address] | Nephrolithiasis | | | | [address] | [address] | | | | | [place] [address] | [place] [address] | | | | | [phone] | [phone] | | | | | | | [...] through Care Everywhere.Flank Pain, Uncertain Caus e ([place] Citizen)in this encounter Medications at Time of Discharge [...] | | | 17 | | | [id number] units capsule | | | | | [...] | | | | | | [facility] [place], | | | | | | [place] [address] | | | | | | [phone] | | | | | | | [...] 4.88 | 3.80 - 11.00 K/uL | [facility] | + + + + + | RBC | 4.68 | 3.70 - 5.10 M/uL | [facility] | + + + + + | HGB | 14.8 | 11.3 - 15.5 g/dL | [facility] | + + + + + | HCT | 44.8 | 34.0 - 46.0 % | [facility] | + + + + + | MCV | 95.8 | 80.0 - 100.0 fl | [facility] | + + + + + | MCH | 31.6 | 27.0 - 34.0 pg | [facility] | + + + + + | MCHC | 32.9 | 32.0 - 35.5 g/dL | [facility] | + + + + + | RDW SD | 45.9 | 37 - 53 fl | [facility] | + + + + + | PLT | 144 (L) | 150 - 400 K/uL | [facility] | + + + + + [...] 0.11 | 0.00 - 0.50 K/uL | [facility] | + + + + + | BASOPHILS ABS | 0.05Comment: Testing | 0.00 - 0.10 K/uL | [facility] | | | performed at [facility];[address] | | | | | [address];[place] | | | | | [address] | | | + + + + + + + + + + | Performing | Address | City/State/Zipcode | Phone Number | | Organization | | | | + + + + + | [facility] | [address] | [place] [address] | | + + + + + Urinalysis (reflex to microscopic/reflex to culture) (09/16/2018 5:39 PM) + + + + + | Component | Value | Ref Range | Performed At | + + + + + | COLOR UA | YELLOW | | [facility] | + + + + + | CLARITY | CLEAR | | [facility] | + + + + + | Specific [place], UA | 1.016 | 1.002 - 1.030 | [facility] | + + + + + [...] | NEGATIVEComment: Testing | NEGATIVE mg/dL | [facility] | | | performed at [facility];[address] | | | | | [address];[place] | | | | | [address] | | | + + + + + + + | Specimen | + + | Urine, Clean Catch | + + + + + + + | Performing | Address | City/State/Zipcode | Phone Number | | Organization | | | | + + + + + | [facility] | [address] | [place] [address] | | + + + + + Lipase (09/16/2018 5:39 PM) + + + + + | Component | Value | Ref Range | Performed At | + + + + + | LIPASE | 51Comment: Testing | 12 - 53 U/L | [facility] | | | performed at [facility];[address] | | | [address];[place], [place] | | | | | [address] | | | + + + + + + + | Specimen | + + | Blood | + + + + + + + | Performing | Address | City/State/Zipcode | Phone Number | | Organization | | | | + + + + + | [facility] | [address] | [place] [address] | | + + + + + C-Reactive Protein (09/16/2018 5:39 PM) + + + + + | Component | Value | Ref Range | Performed At | + + + + + | CRP | <0.4Comment: Testing | <0.5 mg/dL | [facility] | | | performed at [facility];[address] | | | | | [address];[place] | | | | | [address] | | | + + + + + + + | Specimen | + + | Blood | + + + + + + + | Performing | Address | City/State/Zipcode | Phone Number | | Organization | | | | + + + + + | [facility] | [address] | [place] [address] | | + + + + + [...] 7.2 | 6.3 - 8.2 g/dL | [facility] | + + + [...] 0.6 | 0.1 - 1.5 mg/dL | [facility] | + + + + + | ALK PHOS | 110 | 35 - 115 U/L | [facility] | + + + + + | AST | 26 | 10 - 45 U/L | [facility] | + + + + + | ALT | 22 | 10 - 65 U/L | [facility] | + + + + + | EGFR | >60Comment: GFR <60: | >60 mL/min/1.73m2 | [facility] | | | CHRONIC [...] the | | | | | MDRD [facility] traceable | | | | | equation.Testing | | | | | performed at [facility] | | | | | [facility];[place], [place] | | | | | [address] | | | + + + + + + + | Specimen | + + | Blood | + + + + + + + | Performing | Address | City/State/Zipcode | Phone Number | | Organization | | | | + + + + + | [facility] | [address] | [place] [address] | | + + + + + [...] | + + + + + | [facility] | [address] [facility] | [place] [address] | | + + + + + ED INFORMATION EXCHANGE (09/16/2018 4:01 PM) + + + | Narrative | Performed At | + + + | [id number] Criteria Met Care | ED | | Guidelines in Security and Safety No recent Security | INFORMATION | | Events currently on file ED Care Guidelines from Categorical - | EXCHANGE | | [place] Last Updated: 12/26/17 11:09 AM Additional | | | Information: Last seen by [facility] on 09/28/2017.Has been discharged | | | from services after several no shows and no returned callreschedule | | | appointments. These are guidelines and the provider should exercise | | | clinical judgment when providing care. Prescription Drug | | | Report (12 Mo.) PDMP query found no report. E.D. Visit Count | | | (12 mo.) Facility Visits Low Acuity [facility] 10 0 | | | [facility] 2 0 Total 12 0 Note: Visits [...] | or Chief Complaint Sep 16, 2018 [facility]. [place] | | | Emergency Flank Pain Sep 12, 2018 [facility] | | | [place]. 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 Emergency r kidney, | | | lower back pain Unspecified abdominal pain Other | | | specified diseases of biliary tract Sep 08, 2018 [facility] | | | [facility] [place] Emergency abd pain diarrhea Diarrhea, | | | unspecified Sep 02, 2018 [facility] [place] | | | Emergency Headache,Diarrhea Unspecified abdominal pain | | | Functional diarrhea Jun 25, 2018 [facility] | | | [place] Emergency ABDOMINAL PAIN Unspecified | | | abdominal pain Other microscopic hematuria Cystitis, | | | unspecified without hematuria May 05, 2018 [facility] | | | [place] Emergency Chief Complaint: ABD PAIN Apr 28, 2018 | | | [facility] Emergency Abdominal Pain | | | Back Pain Acute parametritis and pelvic cellulitis | | | Apr 01, 2018 [facility] 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 Emergency Chief | | | Complaint: ABD PAIN Recent Inpatient Visit Summary No | | | recorded inpatient visits. Care Providers Provider PRC Type | | | Phone Fax Service Virginia Fisher CHW Community Health Worker | | | Sep 11, 2018 - Current KEELEY POLANCO | | | Primary Care Current [employer] Mental Health Provider | | | Current [employer] Gaspar - | | | MARCUS Thomas Case or Agronomy Internship | | | Current [employer] Portal This patient has registered at the | | [facility] For more | | | information visit: | | | [email or web address] | | | [email or web address] The above information is provided for the sole purpose of | | | patient treatment. Use of this information beyond the terms of Data | | | Sharing Memorandum of Understanding and License Agreement is | | | prohibited. In certain cases not all visits may be represented. | | | Consult the aforementioned facilities for additional information. | | | 2019 [employer], [employer] - [place], [place] - | | | [email or web address] | | + + + + + | Procedure Note | + + | Interface, Lab - 09/16/2018 4:02 PM PDT Formatting of this note may be different | | from the original.[id number] Met Care Guidelines 10 in | | [...] Visit Count (12 mo.)Facility Visits Low Acuity [facility] | | [facility] 10 0 [facility] 2 0 Total 12 0 Note: Visits [...] | | Chief Complaint Sep 16, [address] [facility] [place]. [place] Emergency Flank Pain | | Sep 12, 2018 [facility] [place] Emergency KIDNEY STONES Spondylosis | | without myelopathy or radiculopathy, lumbar region Right lower quadrant pain | | Spondylosis without myelopathy or radiculopathy, thoracic region Ventral hernia | | without obstruction or gangrene Sep 10, 2018 [facility] [place] Emergency | | r kidney, lower back pain Unspecified abdominal pain Other specified diseases of | | biliary tract Sep 08, 2018 [facility] [place] Emergency abd pain diarrhea | | Diarrhea, unspecified Sep 02, 2018 [facility] [place] Emergency | | Headache,Diarrhea Unspecified abdominal pain Functional diarrhea Jun 25, 2018 | | [facility] [place] Emergency ABDOMINAL PAIN Unspecified abdominal pain | | Other microscopic hematuria Cystitis, unspecified without hematuria May 05, 2018 | | [facility] [place] Emergency Chief Complaint: ABD PAIN Apr 28, 2018 | | [facility]. [place] Emergency Abdominal Pain Back Pain Acute | | parametritis and pelvic cellulitis Apr 01, 2018 [facility] [place] | | Emergency Personal history of nicotine dependence Unspecified abdominal pain | | Other intervertebral disc degeneration, thoracic region Other intervertebral disc | | degeneration, lumbar region Mar 19, 2018 [facility] [place] Emergency | | Chief Complaint: ABD PAIN Recent Inpatient Visit SummaryNo recorded inpatient visits. | | Care ProvidersProvider [facility] Type Phone Fax Service Virginia Fisher CHW Community | | Health Worker Sep 11, 2018 - Current KEELEY POLANCO Primary Care | | Current [employer] [facility] Mental Health Provider Current | | MARCUS Santana Case or Agronomy Internship | | Current [facility] PortalThis patient has registered at the [facility] | | [place] Emergency Department For more information visit: | | [email or web address] The above | | information is provided for the sole purpose of patient treatment. Use of this | | information beyond the terms of Data Sharing Memorandum of Understanding and License | | Agreement is prohibited. In certain cases not all visits may be represented. Consult the | | aforementioned facilities for additional information. 2019 [facility] | | [employer]. - [place], [place] - [email or web address] | | Ventral hernia without obstruction or gangrene | | | |Sep 10, 2018 [facility] [place] Emergency | | r [...] hematuria | | | |May 05, 2018 [facility] [place] Emergency Chief Complaint: ABD PAIN | |Apr 28, 2018 [facility]. [place] Emergency | | Abdominal Pain | | Back Pain | | Acute parametritis and pelvic cellulitis | | | |Apr 01, 2018 [facility] [place] Emergency | | Personal history of nicotine dependence | | Unspecified abdominal pain | | Other intervertebral disc degeneration, thoracic region | | Other intervertebral disc degeneration, lumbar region | | | |Mar 19, 2018 [facility] [place] Emergency Chief Complaint: ABD PAIN | | | | | |Recent Inpatient Visit Summary | |No recorded inpatient visits. | | | |Care Providers | |Provider PRC Type Phone Fax Service Dates | |Virginia Gaspar CHW Community Health Worker Sep 11, 2018 - Current | |KEELEY POLANCO Primary Care Current | |[employer] Mental Health Provider Current | |MARCUS Santana Case or Agronomy Internship Current | | | |[employer] Portal | |This patient has registered at the [facility] | |For more information visit: [email or web address] | |The above information is provided for the sole purpose of patient treatment. Use of this in formation beyond the terms of Data Sharing Memorandum of Understanding and License Agreement is prohibited. In | |certain cases not all visits may be represented. Consult the aforementioned facilities for additional information. | |2019 [employer]. - [place], [place] - [email or web address] | + + + +---------+ + + [...]
--- OUTSIDE RECORDS SUMMARY | ~2018-10-10 | XMS | Encounter Summary ---
Demographics + + + | Address | [address] | | | [place] [address] | + + + | Home Phone | | + + + | Preferred Language | Unknown | + + + | Marital Status | Unknown | + + + | Adventist Affiliation | Unknown | + + + | Race | Unknown | + + + | Ethnic Group | Unknown | + + + Author + + + | Author | [facility] | + + + | Organization | [facility] | + + + | Address | Unknown | + + + | Phone | Unavailable | + + + Support + + + + + | Name | Relationship | Address | Phone | + + + + + | Corazon Gardner | ECON | [address] | | | | | [place] | | | | | [address] | | + + + + + | Juni Morel | ECON | [address] | | | | | [place] | | | | | [address] | | + + + + + Care Team Providers + +------+ + | Care Butadiene Converter Operator Name | Role | Phone | [...] + + | 10/03/ | Telephone | [facility] | Salena Almaraz, | Other (Soon | | 2018 | | Gastroenterology | [place] | procedure date) | | | | [address], | | | | | | [address] [place], | | | | | | [place] [address] | | | | | | [phone] | | | +--------+ + + + [...] | | | | | | [place] [address] | | | | | | [phone] | | | | | | | | +--------+---------+ + + + as of this encounter Visit Diagnoses Not on filein this encounter"
--- OUTSIDE RECORDS SUMMARY | ~2018-10-10 | XMS | Encounter Summary ---
Demographics + + + | Address | [address] | | | [place] [address] | + + + | Home Phone | | + + + | Preferred Language | Unknown | + + + | Marital Status | Unknown | + + + | Synagogue Affiliation | Unknown | + + + | Race | Unknown | + + + | Ethnic Group | Unknown | + + + Author + + + | Author | [facility] | + + + | Organization | [facility] | + + + | Address | Unknown | + + + | Phone | Unavailable | + + + Support + + + + + | Name | Relationship | Address | Phone | + + + + + | Corazon Gardner | ECON | [address] | | | | | [place] | | | | | [address] | | + + + + + | Juni Morel | ECON | [address] | | | | | [place] | | | | | [address] | | + + + + + Care Team Providers + +------+ + | Care Patent Clerk Name | Role | Phone | [...] | | | | | | [place] [address] | [place] [address] | | | | | Diverticulos | Phone: | Phone: | | | | | is of large | [phone] | [phone] | | | | | intestine | Fax: | Fax: | | | | | without | [phone] | [phone] | | | | | perforation | [...] + + | 09/27/ | Office | [facility] | Dana Workman, | Diarrhea, | | 2019 | Visit | Gastroenterology | MD [address] | unspecified type | | | | [address], | [address] [place], | (Primary Dx); Blood | | | | [address] [place], | [place] [address] | in stool; Nausea; | | | | [place] [address] | [phone] | Weight loss; Loss of | | | | [phone] | | appetite | +--------+---------+ + + [...] disorder (HCC) Bipolar disorder (HCC) Hydrocephalus with PASSENGER INTERLINE CLERK shunt (2002) Migraine Past Surgical History Procedure [...] by mouth as needed. vitamin D2, ergocalciferol, 80503 units capsule Take 1 capsule by mouth. [...] | | | | | | [facility] [facility] [place], | | | | | | [place] [address] | | | | | | [phone] | | | | | | | [...]
--- OUTSIDE RECORDS SUMMARY | ~2018-10-10 | XMS | Encounter Summary ---
Demographics + + + | Address | [address] | | | [place] [address] | + + + | Home Phone | | + + + | Preferred Language | Unknown | + + + | Marital Status | Unknown | + + + | Mosque Affiliation | Unknown | + + + | Race | Unknown | + + + | Ethnic Group | Unknown | + + + Author + + + | Author | [facility] [employer] | + + + | Organization | [facility] | + + + | Address | Unknown | + + + | Phone | Unavailable | + + + Support + + + + + | Name | Relationship | Address | Phone | + + + + + | Corazon Gardner | ECON | [address] | | | | | [place] | | | | | [address] | | + + + + + | Juni Morel | ECON | [address] | | | | | [place] | | | | | [address] | | + + + + + Care Team Providers + +------+ + | Care Flight Coordinator Name | Role | Phone | + [...] + + | 10/02/ | Telephone | [facility] | Salena Almaraz, | Other (Pt requesting | | 2019 | | Gastroenterology | [place] | to be on | | | | [address], | | cancellation list) | | | | [facility] [address] [place], | | | | | | [place] [address] | | | | | | [phone] | | | +--------+ + + + [...] | | | | | | 1st [facility], | | | | | | [place] [address] | | | | | | [phone] | | | | | | | | +--------+---------+ + + + as of this encounter Visit Diagnoses Not on filein this encounter"
--- OUTSIDE RECORDS SUMMARY | ~2018-10-10 | XMS | Clinical Summary ---
Demographics + + + | Address | [address] | | | [place] [address] | + + + | Home Phone | | + + + | Preferred Language | Unknown | + + + | Marital Status | Unknown | + + + | Gnosticism Affiliation | Unknown | + + + | Race | Unknown | + + + | Ethnic Group | Unknown | + + + Author + + + | Author | [facility] | + + + | Organization | [facility] | + + + | Address | Unknown | + + + | Phone | Unavailable | + + + Support + + + + + | Name | Relationship | Address | Phone | + + + + + | Corazon Gardner | ECON | [address] | | | | | [place] | | | | | [address] | | + + + + + | Juni Morel | ECON | [address] | | | | | [place] | | | | | [address] | | + + + + + Care Team Providers + +------+ + | Care Tire Recapping Machine Operator Name | Role | Phone | [...] | 03/28 | | e | | 98232 units capsule | | | | 17 [...] Overview: Added automatically from request for surgery [id number] | + + + + + | Blood in stool | 09/27/2018 | + + + + + | Overview: Added automatically from request for surgery [id number] | + + +--------+ + | Nausea | 09/27/2018 | +--------+ + + + | Overview: Added automatically from request for surgery [id number] | + + + + + | [...] | 04/16/2012 | + + + | ORGANIZATIONAL DEVELOPMENT CONSULTANT (ventriculoperitoneal) shunt status | 04/16/2012 | + [...] | 10/08/ | Hospital | | Dana Workman, | Diarrhea; Blood in [...] | | | | | 1st Floor [place], | | | | | | [place] [address] | | | | | | [phone] | | | | | | | [...] DUODENAL BIOPSY SPECIMEN(S): B GASTRIC BIOPSY | [facility] | | SPECIMEN(S): C RANDOM RIGHT [...] received in formalin and consists of one [id number]-[id number] soft tissue | | | fragment that [...] component was | | | performed by [facility], [address] [place] [address] | | | (Bean Picker Machine Operator: Earline Rhodes MD; CLIA# [id number]). Professional | | | interpretation was performed by [facility] | | | [address] [address] (Medical | | | Director: Joe Mustafa M.D.; CLIA#: [id number]). | | | Diagnostician: Earline Rhodes MD Pathologist Electronically Signed | | | 10/09/2018 | | + + + + +---------+ + + | Performing | Address | City/State/Zipcode | Phone Number | | Organization | | | | + +---------+ + + | [facility] | | | | + +---------+ + + Colonoscopy procedures (10/08/2018 11:17 AM) + + + | Narrative | Performed At | + + + | [facility] | [facility] | | | [place] | | Patient Name: Qiana Carr Ann Procedure Date: | | | 10/08/2018 11:17 AM MRN: | | | [id number] Account | | | Number: [id number] Date of : | | | 1965 [...] Number of Addenda: 0 | | | [facility] | | + + + + +---------+ + + | Performing | Address | City/State/Zipcode | Phone Number | | Organization | | | | + +---------+ + + | [facility] | | | | + +---------+ + + EGD (10/08/2018 11:04 AM) + + + | Narrative | Performed At | + + + | [facility] | [facility] | | | [place] | | Patient Name: Qiana Carr Procedure Date: | | | 10/08/2018 11:04 AM MRN: | | | [id number] Account | | | Number: [id number] Date of : | | | 1965 [...] Number of Addenda: 0 | | | [facility] | | + + [...] + + + + | Calculated P [place] | 15 | degrees | [facility] | + + + + + | Calculated R [place] | -8 | degrees | [facility] | + + + + + | Calculated T [place] | 15 | degrees | [facility] [...] | + + + + + | [facility] | [address] | [place] [address] | | + + + + + [...] 45.9 | 37 - 53 fl | [facility] | + + + + + | PLT | 144 (L) | 150 - 400 K/uL | [facility] | + + + + + | MPV | 9.3 | fl | [facility] | + + + + + [...] Testing | 0.00 - 0.10 K/uL | [facility] | | | performed at [facility];[address] | | | | | [address];[place] | | | | | [address] | | | + + + + + + + + + + | Performing | Address | City/State/Zipcode | Phone Number | | Organization | | | | + + + + + | [facility] | [address] | [place] [address] | | + + + + + [...] + + + + + | Specific [place], UA | 1.016 | 1.002 - 1.030 [...] KETONES | NEGATIVE | NEGATIVE mg/dL | [facility] | + + + + + | BILIRUBIN | NEGATIVE | NEGATIVE | [facility] | + + + + + | GLUCOSE | NEGATIVEComment: Testing | NEGATIVE mg/dL | [facility] | | | performed at [facility] | | | | | [address];[place], [place] | | | | | [address] | | | + + + + + + + | Specimen | + + | Urine, Clean Catch | + + + + + + + | Performing | Address | City/State/Zipcode | Phone Number | | Organization | | | | + + + + + | [facility] | [address] | [place] [address] | | + + + + + C-Reactive Protein (09/16/2018 5:39 PM) + + + + + | Component | Value | Ref Range | Performed At | + + + + + | CRP | <0.4Comment: Testing | <0.5 mg/dL | [facility] | | | performed at [facility];[address] | | | | | [address];[place] | | | | | [address] | | | + + + + + + + | Specimen | + + | Blood | + + + + + + + | Performing | Address | City/State/Zipcode | Phone Number | | Organization | | | | + + + + + | [facility] | [address] | [place] [address] | | + + + + + Lipase (09/16/2018 5:39 PM) + + + + + | Component | Value | Ref Range | Performed At | + + + + + | LIPASE | 51Comment: Testing | 12 - 53 U/L | [facility] | | | performed at [facility];[address] | | | [address];[place] | | | | | [address] | | | + + + + + + + | Specimen | + + | Blood | + + + + + + + | Performing | Address | City/State/Zipcode | Phone Number | | Organization | | | | + + + + + | [facility] | [address] | [facility] [place] [address] | | + + + + + Complete Metabolic Panel (09/16/2018 5:39 PM) + + + + + | Component | Value | Ref Range | Performed At | + + + + + | SODIUM | 142 | 135 - 145 mmol/L | [facility] | + + + + + | POTASSIUM | 4.7 | 3.5 - 4.9 mmol/L | [facility] | + + + + + | CHLORIDE | 108 | 99 - 109 mmol/L | [facility] | + + + + + | CO2 | 25 | 23 - 32 mmol/L | [facility] | + + + + + | ANION GAP AGAP | 14 | 5 - 20 mmol/L | [facility] | + + + + [...] >60Comment: GFR <60: | >60 mL/min/1.73m2 | [facility] | | | CHRONIC KIDNEY [...] the | | | | | MDRD IDKS traceable | | | | | equation.Testing | | | | | performed at [facility];[address] | | | | | [address];[place] | | | | | [address] | | | + + + + + + + | Specimen | + + | Blood | + + + + + + + | Performing | Address | City/State/Zipcode | Phone Number | | Organization | | | | + + + + + | [facility] | [address] | [place] [address] | | + + + + + [...] | + + + + + | [facility] | [address] | [place] [address] | | + + + + + ED INFORMATION EXCHANGE (09/16/2018 4:01 PM) + + + | Narrative | Performed At | + + + | [id number]:AVELINA [id number] Criteria Met Care | ED | | Guidelines 10 in Security and Safety No recent Security | INFORMATION | | Events currently on file ED Care Guidelines from [employer] - | EXCHANGE | | [place] Last Updated: 12/26/17 11:09 AM Additional | | | Information: [facility].Has been discharged | | | from services after several no shows and no returned callreschedule | | | appointments. These are guidelines and the provider should exercise | | | clinical judgment when providing care. Prescription Drug | | | Report (12 Mo.) PDMP query found no report. E.D. Visit Count | | | (12 mo.) Facility Visits Low Acuity [facility] 10 0 | | | [facility] 2 0 Total 12 0 Note: Visits [...] | or Chief Complaint Sep 16, 2018 [facility] | | | Emergency Flank Pain Sep 12, 2018 [facility] | | | 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 Emergency r kidney, | | | lower back pain Unspecified abdominal pain Other | | | specified diseases of biliary tract Sep 08, 2018 [facility] | | | Health [place] Emergency abd pain diarrhea Diarrhea, | | | unspecified Sep 02, 2018 [facility] [place] | | | Emergency Headache,Diarrhea Unspecified abdominal pain | | | Functional diarrhea Jun 25, 2018 [facility] | | | [place] Emergency ABDOMINAL PAIN Unspecified | | | abdominal pain Other microscopic hematuria Cystitis, | | | unspecified without hematuria May 05, 2018 [facility] | | | [place] Emergency Chief Complaint: ABD PAIN Apr 28, 2018 | | | [facility]. [place] Emergency Abdominal Pain | | | Back Pain Acute parametritis and pelvic cellulitis | | | Apr 01, 2018 [facility] 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 Emergency Chief | | | Complaint: ABD PAIN Recent Inpatient Visit Summary No | | | recorded inpatient visits. Care Providers Provider PRC Type | | | Phone Fax Service Dates Virginia Gaspar CHW Community Health Worker | | | Sep 11, 2018 - Current KEELEY POLANCO | | | Primary Care Current [facility] Provider | | | Current Slade Gaspar - | | | MARCUS Thomas Case or Dressmaker Garment Fitter | | | Current Wedding Reality This patient has registered at the | | | [facility] Emergency Department For more | | | information visit: | | | [email or web address] | | | [email or web address] The above information is provided for the sole purpose of | | | patient treatment. Use of this information beyond the terms of Data | | | Sharing Memorandum of Understanding and License Agreement is | | | prohibited. In certain cases not all visits may be represented. | | | Consult the aforementioned facilities for additional information. | | | 2019 [employer] - [place], [place] - | | | | | + + + + + | Procedure Note | + + | Interface, Lab - 09/16/2018 4:02 PM PDT Formatting of this note may be different | | from the original.[id number] Met Care Guidelines 10 in | | 12Security and SafetyNo recent Security Events currently on fileED Care Guidelines from | | QRcaobibi Acevedo Updated: 12/26/17 11:09 AM Additional Information:Last seen by | | Ruba on 09/28/2017.Has been discharged from services after several no shows and no | | returned callreschedule appointments.These are guidelines and the provider should | | exercise clinical judgment when providing care.Prescription Drug Report (12 Mo.)PDMP | | query found no report.E.D. Visit Count (12 mo.)Facility Visits Low Acuity [facility] | | [facility] 10 0 [facility] 2 0 Total 12 0 Note: Visits [...] | | Chief Complaint Sep 16, 2018 [facility] [place]. [place] Emergency Flank Pain | | Sep 12, 2018 [facility] [place] Emergency KIDNEY STONES Spondylosis | | without myelopathy or radiculopathy, lumbar region Right lower quadrant pain | | Spondylosis without myelopathy or radiculopathy, thoracic region Ventral hernia | | without obstruction or gangrene Sep 10, 2018 [facility] [place] Emergency | | r kidney, lower back pain Unspecified abdominal pain Other specified diseases of | | biliary tract Sep 08, 2018 [facility] [place] Emergency abd pain diarrhea | | Diarrhea, unspecified Sep 02, 2018 [facility] [place] Emergency | | Headache,Diarrhea Unspecified abdominal pain Functional diarrhea Jun 25, 2018 | | [facility] [place] Emergency ABDOMINAL PAIN Unspecified abdominal pain | | Other microscopic hematuria Cystitis, unspecified without hematuria May 05, 2018 | | [facility] [place] Emergency Chief Complaint: ABD PAIN Apr 28, 2018 | | [facility]. [place] Emergency Abdominal Pain Back Pain Acute | | parametritis and pelvic cellulitis Apr 01, 2018 [facility] [place] | | Emergency Personal [...] KEELEY POLANCO Primary Care | | Current [facility] Provider Current | | MARCUS Santana Case or Dressmaker Garment Fitter | | [facility] has [facility] at the [facility] | | [place] [facility] For more information visit: | | [email or web address] The above | | information is provided for the sole purpose of patient treatment. Use of this | | information beyond the terms of Data Sharing Memorandum of Understanding and License | | Agreement is prohibited. In certain cases not all visits may be represented. Consult the | | aforementioned facilities for additional information. 2019 [employer] | | [employer] - [place], [place] - [email or web address] | | Ventral hernia without obstruction or gangrene | | | |Sep 10, 2018 [facility] [place] Emergency | | r kidney, lower back pain | | Unspecified abdominal pain | | Other specified diseases of biliary tract | | | |Sep 08, 2018 [facility] [place] Emergency | | abd pain diarrhea | | Diarrhea, unspecified | | | |Sep 02, 2018 [facility] [place] Emergency | | Headache,Diarrhea | | Unspecified abdominal pain | | Functional diarrhea | | | |Jun 25, 2018 [facility] [place] Emergency | | ABDOMINAL PAIN | | Unspecified abdominal pain | | Other microscopic hematuria | | Cystitis, unspecified without hematuria | | | |May 05, 2018 [facility] [place] Emergency Chief Complaint: ABD PAIN | |Apr 28, 2018 [facility]. [place] Emergency | | Abdominal Pain | | Back Pain | | Acute parametritis and pelvic cellulitis | | | |Apr 01, 2018 [facility] [place] Emergency | | Personal history of nicotine dependence | | Unspecified abdominal pain | | Other intervertebral disc degeneration, thoracic region | | Other intervertebral disc degeneration, lumbar region | | | |Mar 19, 2018 [facility] Emergency Chief Complaint: ABD PAIN | | | | | |Recent Inpatient Visit Summary | |No recorded inpatient visits. | | | |Care Providers | |Provider PRC Type Phone Fax Service Dates | |Virginia Gaspar CHW Community Health Worker Sep 11, 2018 - Current | |KEELEY POLANCO Primary Care Current | |[facility] Provider Current | |MARCUS Santana Case or Dressmaker Garment Fitter Current | | | |[employer] [facility] | |This patient has registered at the [facility] Emergency Department | |For more information visit: [email or web address] | |The above information is provided for the sole purpose of patient treatment. Use of this in formation beyond the terms of Data Sharing Memorandum of Understanding and License Agreement is prohibited. In | |certain cases not all visits may be represented. Consult the aforementioned facilities for additional information. | |2019 [employer] - [place], [place] - [email or web address] | + + + +---------+ + + [...] +------+-------+ + | MEDICAID | JOSEPH | [id number] | | | [address] | | | [place] | | | | [place] | | | [place] | | | | [address] | | | HEALTH INFORMATION INTERNSHIP | | | | | + +--------+ [...] | Self [birth year] | Home: | [address] | | | al/Fam | | 1966 | [phone] [place] | | | [place] | | | [phone] | [address] | + +--------+ +--------+ + +
--- OUTSIDE RECORDS SUMMARY | ~2018-10-10 | XMS | Encounter Summary ---
Demographics + + + | Address | [address] | | | [place] [address] | + + + | Home Phone | | + + + | Preferred Language | Unknown | + + + | Marital Status | Unknown | + + + | Yarsani Affiliation | Unknown | + + + | Race | Unknown | + + + | Ethnic Group | Unknown | + + + Author + + + | Author | [facility] [employer] | + + + | Organization | [facility] [employer] [facility] | + + + | Address | Unknown | + + + | Phone | Unavailable | + + + Support + + + + + | Name | Relationship | Address | Phone | + + + + + | Corazon Gardner | ECON | [address] | | | | | [place] | | | | | [address] | | + + + + + | Juni Morel | ECON | [address] | | | | | [place] | | | | | [address] | | + + + + + Care Team Providers + +------+ + | Care Commercial Lending Vice President Name | Role | Phone | + +------+ + | Keeley Polanco PA-C | PCP | Unavailable | + +------+ + Encounter Details +--------+ + + + + | Date | Type | Department | Care Team | Description | +--------+ + + + + | 10/04/ | Hospital | [facility] | Dana Workman, | | | 2019 | Encounter | [facility] | MD [address] | | | | | Preadmission | 1st Floor [place], | | | | | Services [address] | [place] [address] | | | | | [place], [place] | [phone] | | | | | [address] | | | +--------+ + + + [...] + + + | Blood Pressure | 130/60 | 10/04/2018 12:56 PM PDT | + + + + | Pulse | 84 | 10/04/2018 12:56 PM PDT | + + + + | Temperature | - | - | + + + + | Respiratory Rate | 12 | 10/04/2018 12:56 PM PDT | + + + + | Oxygen Saturation | 99% | 10/04/2018 12:56 PM PDT | + + + + | Inhaled Oxygen | - | - | | Concentration | | | + + + + | Weight | 103.4 kg (227 lb | 10/04/2018 12:56 PM PDT | | | 15.3 oz) | | + + + + | Height | 158.8 cm (5' 2.5") | 10/04/2018 12:56 PM PDT | + + + + | Body Mass Index | 41.03 | 10/04/2018 12:56 PM PDT | + + + + in this encounter Discharge Instructions Raquel Drummond RN - 10/04/2018Formatting of this note may be different from the marcie lerma Medication Instructions Prior to Procedure: Outpatient Prescriptions Marked as Taking for the 10/04/18 encounter (Hospital Encounter) [facility] ROOM 5 Medication Sig INSTRUCTIONS divalproex (DEPAKOTE) 250 MG EC tablet Take 250 mg by mouth. TAKE day of procedure fluticasone (FLOVENT HFA) 110 MCG/ACT inhaler Inhale 1 puff into the lungs 2 (two) time s daily. Rinse mouth after use TAKE day of procedure, if needed and bring with you day of pr ocedure lisinopril (ZESTRIL) 20 MG tablet Take 20 mg by mouth daily. DO NOT TAKE day of procedu re metoclopramide (REGLAN) 10 MG tablet Take 10 mg by mouth 4 (four) times daily before me als and nightly. TAKE day of procedure SUMAtriptan (IMITREX) 50 MG tablet Take 50 mg by mouth as needed. TAKE day of procedure , if needed, and call Dr Workman in this encounter Medications at Time of [...] | | | 17 | | | [address] units capsule | | | | | [...] | | | | | | [address] [facility], | | | | | | [place] [address] | | | | | | [phone] | | | | | | | | +--------+---------+ + + + as of this encounter Procedures + +--------+ + + + | Procedure Name | Priori | Date/Time | Associated Diagnosis | Comments | | | ty | | | | + +--------+ + + + | EKG STANDARD 12 LEAD | Timed | 10/04/2018 | | Results for this | | | | 12:56 PM | | procedure are in the | | | | PDT | | results section. | + +--------+ + + + in this encounter Results EKG STANDARD 12 LEAD (10/04/2018 12:56 PM) + + + + + | Component | Value | Ref Range | Performed At | + + + + + | Ventricular Rate | 81 | BPM | [facility] | + + + + + [...] + + + + | Calculated P Ona | 15 | degrees | [facility] | + + + + + | Calculated R Ona | -8 | degrees | [facility] | + + + + + | Calculated T Ona | 15 | degrees | [facility] | + + + + + | Diagnosis | Normal sinus | | [facility] | | | rhythmNonspecific ST | [...] + | [facility] | [address] | [place] [address] | | + + + + + in this encounter Visit Diagnoses Not on filein this encounter
--- OUTSIDE RECORDS SUMMARY | ~2018-10-10 | XMS | Encounter Summary ---
Demographics + + + | Address | [address] | | | [place] [address] | + + + | Home Phone | | + + + | Preferred Language | Unknown | + + + | Marital Status | Unknown | + + + | Temple Affiliation | Unknown | + + + | Race | Unknown | + + + | Ethnic Group | Unknown | + + + Author + + + | Author | [facility] [employer] | + + + | Organization | [facility] | + + + | Address | Unknown | + + + | Phone | Unavailable | + + + Support + + + + + | Name | Relationship | Address | Phone | + + + + + | Corazon Gardner | ECON | [address] | | | | | [place] | | | | | [address] | | + + + + + | Juni Morel | ECON | [address] | | | | | [place] | | | | | [address] | | + + + + + Care Team Providers + +------+ + | Care Interactive Media Marketing Director Name | Role | Phone | + +------+ + | Keeley Polanco PA-C | PCP | Unavailable | + +------+ + Encounter Details +--------+ + + + + | Date | Type | Department | Care Team | Description | +--------+ + + + + | 10/08/ | Procedure | Located [facility] | | | | 2019 | [facility] | | | | | | Endoscopy [address] | | | | | | [place], [place] | | | | | | [address] | | | +--------+ + + + [...] | | | | [address] [facility], | | | | | | [place] [address] | | | | | | [phone] | | | | | | | | +--------+---------+ + + + as of this encounter Visit Diagnoses Not on filein this encounter"
--- OUTSIDE RECORDS SUMMARY | ~2018-10-10 | XMS | Encounter Summary ---
Demographics + + + | Address | [address] | | | [place] [address] | + + + | Home Phone | | + + + | Preferred Language | Unknown | + + + | Marital Status | Unknown | + + + | Scientology Affiliation | Unknown | + + + | Race | Unknown | + + + | Ethnic Group | Unknown | + + + Author + + + | Author | [facility] [employer] | + + + | Organization | [facility] [employer] | + + + | Address | Unknown | + + + | Phone | Unavailable | + + + Support + + + + + | Name | Relationship | Address | Phone | + + + + + | Corazon Gardner | ECON | [address] | | | | | [place] | | | | | [address] | | + + + + + | Juni Morel | ECON | [address] | | | | | [place] | | | | | [address] | | + + + + + Care Team Providers + +------+ + | Care Sports Anchor Name | Role | Phone | + [...] + + | 10/08/ | Anesthesia | [facility] | Alexis Beck | | | 2018 | [facility] | [address] | | | | | Endoscopy [address] | [address] | | | | | [place], [place] | [place] [address] | | | | | [address] | [phone] | | | | | | | [...] [address] | | (N/A Lower GI) | [address] | | | + + + + [...] | | | | | | [place] [address] | | | | | | [phone] | | | | | | | [...]
--- OUTSIDE RECORDS SUMMARY | ~2018-10-10 | XMS | Encounter Summary ---
Demographics + + + | Address | [address] | | | [place] [address] | + + + | Home Phone | | + + + | Preferred Language | Unknown | + + + | Marital Status | Unknown | + + + | Mormon Affiliation | Unknown | + + + | Race | Unknown | + + + | Ethnic Group | Unknown | + + + Author + + + | Author | [facility] [employer] | + + + | Organization | [facility] [employer] [facility] | + + + | Address | Unknown | + + + | Phone | Unavailable | + + + Support + + + + + | Name | Relationship | Address | Phone | + + + + + | Corazon Gardner | ECON | [address] | | | | | [place] | | | | | [address] | | + + + + + | Juni Morel | ECON | [id number] | | | | | [place] | | | | | [address] | | + + + + + Care Team Providers + +------+ + | Care Hospital Sales Representative Name | Role | Phone | + +------+ + | Keeley Polanco PA-C | PCP | Unavailable | + +------+ + Encounter Details +--------+ + + + + | Date | Type | Department | Care Team | Description | +--------+ + + + + | 10/04/ | Hospital | [facility] | Dana Workman, | | | 2019 | Encounter | [facility] | MD [address] | | | | | Preadmission | 1st Floor [place], | | | | | Services [address] | [place] [address] | | | | | [place], [place] | [phone] | | | | | [address] | [...] Taking for the 10/04/18 encounter (Hospital Encounter) [facility] ROOM 5 Medication Sig INSTRUCTIONS divalproex (DEPAKOTE) [...] | | | 17 | | | [id number] units capsule | | | | | [...] | | | | | 1st [facility], | | | | | | [place] [address] | | | | | | [phone] | | | | | | | [...] + + + + | Calculated P [place] | 15 | degrees | [facility] EKG | + + + + + | Calculated R [place] | -8 | degrees | [facility] EKG | + + + + + | Calculated T [place] | 15 | degrees | [facility] EKG [...] + + + + + | [facility] | [address] | [place] [address] | | + + + + + in this encounter Visit Diagnoses Not on filein this encounter
--- OUTSIDE RECORDS SUMMARY | ~2018-10-10 | XMS | Encounter Summary ---
Demographics + + + | Address | [address] | | | [place] [address] | + + + | Home Phone | | + + + | Preferred Language | Unknown | + + + | Marital Status | Unknown | + + + | Amish Affiliation | Unknown | + + + | Race | Unknown | + + + | Ethnic Group | Unknown | + + + Author + + + | Author | [facility] [employer] | + + + | Organization | [facility] [employer] | + + + | Address | Unknown | + + + | Phone | Unavailable | + + + Support + + + + + | Name | Relationship | Address | Phone | + + + + + | Corazon Gardner | ECON | [id number] | | | | | [place] | | | | | [address] | | + + + + + | Juni Morel | ECON | [address] | | | | | [place] | | | | | [address] | | + + + + + Care Team Providers + +------+ + | Care Enrollment Management Coordinator Name | Role | Phone | [...] + + | 10/08/ | Hospital | [facility] | Dana Workman, | Diarrhea; Blood in | | 2019 | Encounter | [facility] | MD [address] | stool; Nausea; | | | | Endoscopy [address] | [address] Floor [facility], | Diarrhea, | | | | [address] [place], [place] | [place] [address] | unspecified type; | | | | [address] | [phone] | Blood in stool; | | | [...] | | | 17 | | | [id number] units capsule | | | | | [...] | | | | | 1st Floor [facility] | | | | | | [place] [address] | | | | | | [phone] | | | | | | | [...] DUODENAL BIOPSY SPECIMEN(S): B GA[facility] BIOPSY | [facility] | | SPECIMEN(S): C RANDOM RIGHT COLON [...] received in formalin and consists of one aikp-szp-etr soft tissue | | | fragment that [...] component was | | | performed by [facility], [address] [place] [address] | | | (Visual Effects Artist: Earline Rhodes MD; CLIA# [id number]). Professional | | | [facility] | | | [address] [address] (Medical | | | Director: Joe Mustafa M.D.; CLIA#: [id number]). | | | Diagnostician: Earline Rhodes MD Pathologist Electronically Signed | | | 10/09/2018 | | + + + + +---------+ + + | Performing | Address | City/State/Zipcode | Phone Number | | Organization | | | | + +---------+ + + | [facility] | | | | + +---------+ + + Colonoscopy procedures (10/08/2018 11:17 AM) + + + | Narrative | Performed At | + + + | [facility] | [facility] | | | [facility] | | Patient Name: Qiana Carr Ann Procedure Date: | | | 10/08/2018 11:17 AM MRN: | | | [id number] Account | | | Number: [id number] Date of : | | | 1965 [...] of Addenda: 0 | | | [facility] | | + + + + +---------+ + + | Performing | Address | City/State/Zipcode | Phone Number | | Organization | | | | + +---------+ + + | [facility] | | | | + +---------+ + + EGD (10/08/2018 11:04 AM) + + + | Narrative | Performed At | + + + | [facility] | [facility] | | | [facility] | | Patient Name: Qiana Carr Procedure Date: | | | 10/08/2018 11:04 AM MRN: | | | [id number] Account | | | Number: [id number] Date of : | | | 1965 [...] of Addenda: 0 | | | [facility] | | + [...]
[~2018-10-10 15:39] MED LIST: CIPRO500 MG PO; FLUOXETINE HCL40 MG PO; HYDROCHLOROTHIA25 MG PO; LISINOPRIL20 MG PO; TYLENOL325 MG PO
--- OUTSIDE RECORDS SUMMARY | 2018-10-10 15:42 | XMS ---
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 No recent Security Events currently on file CRITERIA MET - 6 ED Visits in 6 Months - [facility] - Has Care Guidelines - [facility] - 3 Facilities in 90 Days - PDMP - [facility] - 2 Visits in 30 Days CARE PROVIDERS Virginia Gaspar Community Health Worker 09/11/2018-Current PHONE: [phone] IX [facility] PHONE: [phone] [facility] Primary Care Current PHONE: Unknown SHERLY Yeh Mental Health Provider Current PHONE: [phone] Slade Gaspar - Case or Physicist [employer] Current [facility] PHONE: [phone] Guidelines Source: Ruba Rivera Guidelines Date: 12/26/2017 Additional Information: Last seen by [facility] on 09/28/2017.\T\nbsp; Has been discharged from services after several no shows and no returned call\T\nbsp;to reschedule appointments.\T\ nbsp; E.D. VISIT COUNT (12 MO.) [address] 1 RHIANNON Manuel TOTAL 17 NOTE: Visits indicate total known visits. ED/UCC VISIT TRACKING (12 MO.) 10/10/2018 15:39 [facility] [place] TYPE: Emergency COMPLAINT: - ABD PAIN 10/04/2018 19:52 [facility] [place] TYPE: Emergency DIAGNOSES: - Right lower quadrant pain - STOMACH PAIN 09/26/2018 17:20 [facility] [place] TYPE: Emergency DIAGNOSES: - Gastroparesis - STOMACH PAIN/VOMITING 09/22/2018 14:38 [facility] [place] TYPE: Emergency DIAGNOSES: - Unspecified abdominal pain - L LOWER BACK PAIN BLOOD IN URINE 09/17/2018 08:54 [facility] [place] TYPE: Emergency DIAGNOSES: - Abd side pain - Generalized abdominal pain 09[facility]16[facility] TYPE: Emergency DIAGNOSES: - Calculus of kidney - Unspecified abdominal pain - Flank Pain 09/12/2018 09:38 [facility] [place] TYPE: Emergency DIAGNOSES: - Spondylosis without myelopathy or radiculopathy, lumbar region - KIDNEY STONES - Right lower quadrant pain - Spondylosis without myelopathy or radiculopathy, thoracic region - Ventral hernia without obstruction or gangrene 09/10/2018 19:05 [facility] [place] TYPE: Emergency DIAGNOSES: - r kidney, lower back pain - Unspecified abdominal pain - Other specified diseases of biliary tract 09/08/2018 12:11 [facility] [place] TYPE: Emergency DIAGNOSES: - abd pain diarrhea - Diarrhea, unspecified 09/02/2018 14:11 [facility] [place] TYPE: Emergency DIAGNOSES: - Unspecified abdominal pain - Headache,Diarrhea - Functional diarrhea 06/25/2018 08:50 [facility] [place] TYPE: Emergency DIAGNOSES: - Unspecified abdominal pain - Other microscopic hematuria - ABDOMINAL PAIN - Cystitis, unspecified without hematuria 05/05/2018 14:31 [facility] [place] TYPE: Emergency COMPLAINT: - ABD PAIN 04/28/2018 08:50 [facility] DIAGNOSES: - Abdominal Pain - Acute parametritis and pelvic cellulitis - Back Pain 04/01/2018 09:03 [facility] [place] TYPE: Emergency COMPLAINT: - KIDNEY STONES DIAGNOSES: - Personal history of nicotine dependence - Unspecified abdominal pain - Other intervertebral disc degeneration, thoracic region - Other intervertebral disc degeneration, lumbar region 03/19/2018 16:22 [facility] [place] TYPE: Emergency COMPLAINT: - ABD PAIN 12/25/2017 17:05 [facility] [place] TYPE: Emergency COMPLAINT: - SIDE PAIN FEVER 11/22/2017 15:02 [facility] [place] TYPE: Emergency COMPLAINT: - R FLANK PAIN INPATIENT VISIT TRACKING (12 MO.) No inpatient visits to display in this time frame [id number]
[2018-10-10] MEDS ORDERED: VITAMIN D5000 UNIT PO (15:51)
[2018-10-10] MEDS ORDERED: TRAZODONE HCL50 MG PO (15:51)
[2018-10-10] MEDS ORDERED: DEPAKOTE250 MG PO (15:51)
== END 2018-10-10 17:15 | disposition home or self-care (01) ==
LOC: ED 15:39
DX: R10.13 Epigastric pain (principal); G89.29 Other chronic pain; Z87.891 Personal history of nicotine dependence; Z88.0 Allergy status to penicillin; Z88.6 Allergy status to analgesic agent; Z88.5 Allergy status to narcotic agent; Z79.899 Other long term (current) drug therapy
CPT/HCPCS: 74022; 80053; 83690; 85025; 96361; 96374; 99284-25; J2550; J7030